=== PATIENT | male | born 1990 | race Caucasian/White ===

== ENCOUNTER 2017-01-25 21:20 | Emergency (ER) | payer MEDICAID ==
[~2017-01-25] VITALS: Ht 180.3 cm; Wt 80.8 kg
[~2017-01-25 21:20] MED LIST: ALPR-475 PO; AMPH30TA2 PO; METH-356 PO; ZOLP-413 PO
[2017-01-25 21:22] VITALS: BP 156/109
== END 2017-01-25 22:10 | disposition left against medical advice (07) ==
LOC: ED 22:04
DX: R05 Cough (principal); Z53.21 Procedure and treatment not carried out due to patient leaving prior to being seen by health care provider

== ENCOUNTER 2017-02-07 21:55 | Emergency (ER) | payer MEDICAID ==
[~2017-02-07] VITALS: Ht 180.3 cm; Wt 80.9 kg
[2017-02-07 22:00] VITALS: BP 140/96
[2017-02-07] MEDS ORDERED: IBUPROFEN 200 MG TABLET ONE (22:27)
[2017-02-07] MEDS ORDERED: TRAZ150T68 PO (22:32)
[2017-02-07] MEDS ORDERED: IBUPROFEN 200 MG TABLET PO ONE (23:30)
== END 2017-02-07 23:17 | disposition home or self-care (01) ==
LOC: ED 22:59
DX: S16.1XXA Strain of muscle, fascia and tendon at neck level, initial encounter (principal); F10.20 Alcohol dependence, uncomplicated; F17.200 Nicotine dependence, unspecified, uncomplicated; F11.10 Opioid abuse, uncomplicated; F15.10 Other stimulant abuse, uncomplicated; X58.XXXA Exposure to other specified factors, initial encounter; Y93.89 Activity, other specified; Y92.89 Other specified places as the place of occurrence of the external cause; Y99.8 Other external cause status
CPT/HCPCS: 72050

== ENCOUNTER 2017-04-25 02:06 | Emergency (ER) | payer MEDICAID ==
[~2017-04-25] VITALS: Ht 180.3 cm; Wt 82.4 kg
[2017-04-25 02:06] VITALS: BP 136/94
[~2017-04-25 02:06] MED LIST changes: +TRAZ150T68 PO
[2017-04-25] MEDS ORDERED: KETOROLAC 30 MG/1 ML ONE (02:54)
[2017-04-25] MEDS ORDERED: KETOROLAC 30 MG/1 ML IM ONE (03:00)
== END 2017-04-25 03:06 | disposition home or self-care (01) ==
LOC: ED 02:31
DX: K08.89 Other specified disorders of teeth and supporting structures (principal); E87.6 Hypokalemia; F10.20 Alcohol dependence, uncomplicated
CPT/HCPCS: 96372; 99283; J1885

== ENCOUNTER 2017-05-25 18:59 | Emergency (ER) | payer MEDICAID ==
[~2017-05-25] VITALS: Ht 180.3 cm; Wt 88.5 kg
[2017-05-25 19:03] VITALS: BP 138/88
== END 2017-05-25 20:23 | disposition home or self-care (01) ==
LOC: ED 20:17
DX: S39.012A Strain of muscle, fascia and tendon of lower back, initial encounter (principal); K02.9 Dental caries, unspecified; F17.210 Nicotine dependence, cigarettes, uncomplicated; F20.9 Schizophrenia, unspecified; X58.XXXA Exposure to other specified factors, initial encounter; Y93.89 Activity, other specified; Y99.8 Other external cause status; Y92.89 Other specified places as the place of occurrence of the external cause
CPT/HCPCS: 99283

== ENCOUNTER 2017-06-26 12:44 | Emergency (ER) | payer MEDICAID ==
[~2017-06-26] VITALS: Ht 180.3 cm; Wt 82.7 kg
[2017-06-26 12:58] VITALS: BP 137/88
== END 2017-06-26 13:51 | disposition home or self-care (01) ==
LOC: ED 13:30
DX: K02.9 Dental caries, unspecified (principal); F17.200 Nicotine dependence, unspecified, uncomplicated
CPT/HCPCS: 99283

== ENCOUNTER 2017-07-09 19:30 | Emergency (ER) | payer MEDICAID ==
[~2017-07-09] VITALS: Ht 180.3 cm; Wt 81.7 kg
[~2017-07-09 19:30] MED LIST changes: +TRAZ150T62 PO; -TRAZ150T68 PO
[2017-07-09 19:43] VITALS: BP 126/98
== END 2017-07-09 21:52 | disposition home or self-care (01) ==
LOC: ED 21:46
DX: S60.031A Contusion of right middle finger without damage to nail, initial encounter (principal); W19.XXXA Unspecified fall, initial encounter; Y93.89 Activity, other specified; Y92.89 Other specified places as the place of occurrence of the external cause; Y99.8 Other external cause status
CPT/HCPCS: 99284

== ENCOUNTER 2017-07-11 14:21 | Emergency (ER) | payer MEDICAID ==
[~2017-07-11] VITALS: Ht 180.3 cm; Wt 79.8 kg
[2017-07-11 14:44] VITALS: BP 165/97
[2017-07-11] MEDS ORDERED: HYDROcodone/APAP 5/325 TABLET PO ONE (15:30)
[2017-07-11] MEDS ORDERED: HYDROcodone/APAP 5/325 TABLET ONE (15:34)
== END 2017-07-11 15:45 | disposition home or self-care (01) ==
LOC: ED 15:41
DX: K02.9 Dental caries, unspecified (principal); F17.200 Nicotine dependence, unspecified, uncomplicated; F19.10 Other psychoactive substance abuse, uncomplicated
CPT/HCPCS: 99283

== ENCOUNTER 2017-07-24 12:15 | Emergency (ER) | payer MEDICAID ==
[~2017-07-24] VITALS: Ht 180.3 cm; Wt 75.9 kg
[2017-07-24 12:22] VITALS: BP 153/86
== END 2017-07-24 13:05 | disposition left against medical advice (07) ==
LOC: ED 12:59
DX: Z53.21 Procedure and treatment not carried out due to patient leaving prior to being seen by health care provider (principal)

== ENCOUNTER 2017-10-01 02:44 | Emergency (ER) | payer MEDICAID ==
[~2017-10-01] VITALS: Ht 180.3 cm; Wt 75.4 kg
[2017-10-01 02:45] VITALS: BP 134/89
[2017-10-01] MEDS ORDERED: OXYcodone/APAP 10/325MG TABLET PO ONE (05:00)
[2017-10-01] MEDS ORDERED: KETOROLAC 30 MG/1 ML IM ONE (05:00)
== END 2017-10-01 05:04 | disposition home or self-care (01) ==
LOC: ED 03:56
DX: K02.9 Dental caries, unspecified (principal); K04.7 Periapical abscess without sinus; F17.200 Nicotine dependence, unspecified, uncomplicated
CPT/HCPCS: 96372; 99283; J1885

== ENCOUNTER 2017-11-16 19:19 | Emergency (ER) | payer MEDICAID, OTHER ==
[~2017-11-16] VITALS: Ht 180.3 cm; Wt 71.0 kg
[2017-11-16] MEDS ORDERED: ALPR0.25 PO (19:34)
[2017-11-16] MEDS ORDERED: HYDR1TAB12 PO (19:34)
[2017-11-16] MEDS ORDERED: DEXT10TA7 PO (19:34)
[2017-11-16] MEDS ORDERED: ZOLP-413 PO (19:34)
[2017-11-16] MEDS ORDERED: AMOX250C17 PO (19:34)
[2017-11-16 19:44] LABS: BASOPHILS # (AUTO) 0.01 x10^3/uL (0-0.1); BASOPHILS % (AUTO) 0 % (0-1); EOSINOPHILS # (AUTO) 0.03 x10^3/uL (0-0.4); EOSINOPHILS % (AUTO) 0 % (1-7); LYMPHOCYTES % (AUTO) 14 % (22-44); MD NO; MEAN CORPUSCULAR HEMOGLOBIN 30.2 pg (27.5-34.5); MEAN CORPUSCULAR HGB CONC 34.8 g/dL (33.2-36.2); MEAN CORPUSCULAR VOLUME 86.7 fL (81-97); MEAN PLATELET VOLUME 7.5 fL (7.4-10.4); MONOCYTES % (AUTO) 6 % (2-9); NEUTROPHILS # (AUTO) 9.77 x10^3/uL (1.8-6.8); NEUTROPHILS % (AUTO) 80 % (42-75); PLATELET COUNT 214 x10^3/uL (130-400); RED BLOOD COUNT 5.07 x10^6/uL (4.38-5.82); RED CELL DISTRIBUTION WIDTH 12.4 % (9.4-14.8)
[2017-11-16 19:53] VITALS: BP 127/84
[2017-11-16 19:55] LABS: ALBUMIN 4.4 g/dL (3.4-5.0); ANION GAP 10 mmol/L (5-15); CALCIUM 9.1 mg/dL (8.5-10.1); CHLORIDE 104 mmol/L (98-107); CREATININE 0.83 mg/dL (0.7-1.3)
[2017-11-16 20:41] LABS: CREATINE KINASE, TOTAL 24031 U/L (39-308)
== END 2017-11-16 20:24 ==
LOC: ED 20:18
DX: M79.651 Pain in right thigh (principal); M79.652 Pain in left thigh; I10 Essential (primary) hypertension
CPT/HCPCS: 36415; 80048; 82040; 82550; 85025; 99284

== ENCOUNTER 2017-11-22 12:02 | Emergency (ER) | payer SELFPAY ==
[~2017-11-22] VITALS: Ht 182.9 cm; Wt 80.0 kg
[~2017-11-22 12:02] MED LIST changes: +ALPR0.25 PO; +AMOX250C17 PO; +DEXT10TA7 PO; +HYDR1TAB12 PO
[2017-11-22 12:14] VITALS: BP 125/85
[2017-11-22] MEDS ORDERED: IBUPROFEN 200 MG TABLET PO ONE (12:30)
[2017-11-22] MEDS ORDERED: IBUPROFEN 200 MG TABLET ONE (12:31)
== END 2017-11-22 12:43 | disposition left against medical advice (07) ==
LOC: ED 12:15
DX: M25.571 Pain in right ankle and joints of right foot (principal); G89.11 Acute pain due to trauma; K08.9 Disorder of teeth and supporting structures, unspecified; F19.10 Other psychoactive substance abuse, uncomplicated
CPT/HCPCS: 99284

== ENCOUNTER 2017-11-28 16:33 | Emergency (ER) | payer MEDICAID, OTHER ==
[~2017-11-28] VITALS: Ht 180.3 cm; Wt 77.8 kg
[2017-11-28] MEDS ORDERED: HYDROcodone/APAP 5/325 TABLET PO STA (17:05)
[2017-11-28] MEDS ORDERED: HYDROcodone/APAP 5/325 TABLET ONE (17:05)
[2017-11-28 17:35] VITALS: BP 152/96
== END 2017-11-28 17:38 | disposition home or self-care (01) ==
LOC: ED 17:32
DX: K02.9 Dental caries, unspecified (principal); I10 Essential (primary) hypertension; F20.9 Schizophrenia, unspecified
CPT/HCPCS: 99283

== ENCOUNTER 2018-01-14 14:30 | Emergency (ER) | payer MEDICAID ==
[~2018-01-14] VITALS: Ht 185.4 cm; Wt 68.6 kg
[2018-01-14 14:33] VITALS: BP 128/86
== END 2018-01-14 15:48 | disposition left against medical advice (07) ==
LOC: ED 15:42
DX: K13.79 Other lesions of oral mucosa (principal); Z53.21 Procedure and treatment not carried out due to patient leaving prior to being seen by health care provider

== ENCOUNTER 2018-02-06 09:49 | Emergency (ER) | payer MEDICAID ==
[~2018-02-06] VITALS: Ht 177.8 cm; Wt 66.2 kg
[2018-02-06 09:50] VITALS: BP 138/78
== END 2018-02-06 10:52 | disposition left against medical advice (07) ==
LOC: ED 10:15
DX: K08.89 Other specified disorders of teeth and supporting structures (principal); I10 Essential (primary) hypertension
CPT/HCPCS: 99281

== ENCOUNTER 2018-02-10 23:22 | Emergency (ER) | payer MEDICAID ==
[~2018-02-10] VITALS: Ht 172.7 cm; Wt 65.3 kg
[2018-02-10 23:26] VITALS: BP 109/76
== END 2018-02-10 23:54 | disposition home or self-care (01) ==
LOC: ED 23:50
DX: M79.672 Pain in left foot (principal); M79.671 Pain in right foot; F17.200 Nicotine dependence, unspecified, uncomplicated
CPT/HCPCS: 99283

== ENCOUNTER 2018-08-02 07:47 | Emergency (ER) | payer MEDICAID ==
[~2018-08-02] VITALS: Ht 181.6 cm; Wt 78.7 kg
[2018-08-02] MEDS ORDERED: ONDANSETRON ODT 4 MG PO ONE (09:30)
[2018-08-02] MEDS ORDERED: ONDANSETRON ODT 4 MG ONE (09:56)
[2018-08-02] MEDS ORDERED: SODIUM CHLORIDE FLUSH 10ML SYR IVF ONE (10:00)
[2018-08-02] MEDS ORDERED: SODIUM CHLORIDE 0.9% 1,000ML IVBOLUS ONE (10:00)
[2018-08-02 10:11] LABS: MICROSCOPIC NOT IND
[2018-08-02] MEDS ORDERED: KETOROLAC 30 MG/1 ML ONE (10:16)
[2018-08-02 10:20] LABS: CULTURE INDICATED? NO
[2018-08-02] MEDS ORDERED: KETOROLAC 30 MG/1 ML IVPush ONE (10:30)
[2018-08-02 10:41] LABS: ALBUMIN 4.1 g/dL (3.4-5.0); ANION GAP 8 mmol/L (5-15); CALCIUM 8.3 mg/dL (8.5-10.1); CHLORIDE 109 mmol/L (98-107); CREATININE 0.79 mg/dL (0.7-1.3)
[2018-08-02 10:43] LABS: ALKALINE PHOSPHATASE 77 U/L (45-117); BILIRUBIN,TOTAL 0.3 mg/dL (0.2-1.0); TOTAL PROTEIN 7.2 g/dL (6.4-8.2)
[2018-08-02 10:46] LABS: ALANINE AMINOTRANSFERASE 29 U/L (12-78)
[2018-08-02 10:54] LABS: BASOPHILS # (AUTO) 0.03 x10^3/uL (0-0.1); BASOPHILS % (AUTO) 0 % (0-1); EOSINOPHILS # (AUTO) 0.04 x10^3/uL (0-0.4); EOSINOPHILS % (AUTO) 1 % (1-7); LYMPHOCYTES # (AUTO) 1.19 x10^3/uL (1-3.4); LYMPHOCYTES % (AUTO) 16 % (22-44); MD SCAN; MEAN CORPUSCULAR HEMOGLOBIN 31.5 pg (27.5-34.5); MEAN CORPUSCULAR HGB CONC 35.4 g/dL (33.2-36.2); MEAN PLATELET VOLUME 8.4 fL (7.4-10.4); MONOCYTES # (AUTO) 0.45 x10^3/uL (0.2-0.8); MONOCYTES % (AUTO) 6 % (2-9); NEUTROPHILS # (AUTO) 5.71 x10^3/uL (1.8-6.8); NEUTROPHILS % (AUTO) 77 % (42-75); PLATELET COUNT 188 x10^3/uL (130-400); RED BLOOD COUNT 4.84 x10^6/uL (4.38-5.82)
[2018-08-02 11:08] VITALS: BP 136/99
== END 2018-08-02 11:23 | disposition home or self-care (01) ==
LOC: ED 11:10
DX: R10.84 Generalized abdominal pain (principal); R11.2 Nausea with vomiting, unspecified; R19.7 Diarrhea, unspecified; I10 Essential (primary) hypertension; F17.200 Nicotine dependence, unspecified, uncomplicated; F20.9 Schizophrenia, unspecified
CPT/HCPCS: 36415; 74021; 80053; 81003; 85025; 96361; 96374; 99285; J1885; J7030; Q0162

== ENCOUNTER 2018-08-11 11:55 | Emergency (ER) | payer MEDICAID ==
[~2018-08-11] VITALS: Ht 180.3 cm; Wt 78.9 kg
[2018-08-11 11:58] VITALS: BP 119/86
[2018-08-11] MEDS ORDERED: ACETAMINOPHEN 325 MG TABLET ONE (12:26)
[2018-08-11] MEDS ORDERED: IBUPROFEN 200 MG TABLET ONE (12:26)
[2018-08-11] MEDS ORDERED: ACETAMINOPHEN 325 MG TABLET PO ONE (12:30)
[2018-08-11] MEDS ORDERED: IBUPROFEN 200 MG TABLET PO ONE (12:30)
== END 2018-08-11 12:51 | disposition home or self-care (01) ==
LOC: ED 12:21
DX: K08.89 Other specified disorders of teeth and supporting structures (principal); I10 Essential (primary) hypertension; F20.9 Schizophrenia, unspecified; F17.200 Nicotine dependence, unspecified, uncomplicated
CPT/HCPCS: 99283

== ENCOUNTER 2019-03-24 13:44 | Emergency (ER) | payer MEDICAID ==
[~2019-03-24] VITALS: Ht 185.4 cm; Wt 87.0 kg
[~2019-03-24 13:44] MED LIST changes: -HYDR1TAB12 PO; +HYDR1TAB13 PO; -METH-356 PO; +METH10TA2 PO
[2019-03-24] MEDS ORDERED: PLEASE ENTER HEIGHT AND WEIGHT MC SCH (13:56)
[2019-03-24] MEDS ORDERED: LORazepam 1MG TABLET PO ONE (14:00)
[2019-03-24 14:01] VITALS: BP 135/84
[2019-03-24] MEDS ORDERED: LORazepam 1MG TABLET ONE (14:07)
--- NOTE | 2019-03-24 14:20 | NUR ---
PROGRESS NOTE - PT BIB EMS. PER EMS, PT STATED HE DID NOT FEEL WEEL. TOOK MULTIPLE DRUGS AND MEDS (SEE TRIAGE NOTE). PT STATES HE HAS DENTAL PAIN. PT APPEARS VERY ANXIOUS. PT STATES HE WANTS TO LEAVE. EDUCATION PROVIDED THAST HE SHOULD REMAIN IN ED FOR MONITORING. PT IS A&OX4, NEURO APPEARS INTACT EXCEPT ANXIOS. NO OBVIOUS SIGNS OF TRAUMA. PT DENIES ANY RECENT INJURY. PT MEDICATED PER ORDER. PT ON CP MONITORS. REFUSING LAB WORK AND EKG. PT THEN ELOPED FROM ED WITH ALL PERSONAL BELONGINGS.
--- NOTE | 2019-03-24 14:37 | NUR ---
PT LEFT AMBULATORY WITH STEADY GAIT AND ALL PERSONAL BELONGINGS.
== END 2019-03-24 14:39 | disposition left against medical advice (07) ==
LOC: ED 14:33
DX: F11.229 Opioid dependence with intoxication, unspecified (principal); F15.229 Other stimulant dependence with intoxication, unspecified; F22 Delusional disorders; I10 Essential (primary) hypertension; F20.9 Schizophrenia, unspecified
CPT/HCPCS: 99283

== ENCOUNTER 2019-03-31 09:48 | Emergency (ER) | payer MEDICAID ==
[~2019-03-31] VITALS: Ht 180.3 cm; Wt 84.6 kg
[2019-03-31 09:54] VITALS: BP 152/99
--- NOTE | 2019-03-31 11:53 | NUR ---
INSURANCE LOSS ASSESSOR: PT NOT IN LOBBY X 3 ATTEMPTS, 1105, 1120, 1140
== END 2019-03-31 11:55 | disposition left against medical advice (07) ==
LOC: ED 11:49
DX: K08.89 Other specified disorders of teeth and supporting structures (principal)
CPT/HCPCS: 99281

== ENCOUNTER 2019-04-26 15:36 | Emergency (ER) | payer MEDICAID ==
[~2019-04-26] VITALS: Ht 175.3 cm; Wt 75.0 kg
--- NOTE | 2019-04-26 16:02 | NUR ---
Per [facility], patient was on top of parking garage threatening to jump off. Reports smoking meth 30 min prior to [facility]'s arrival. When RN asked patient to remove his clothes he asked if he could take one more hit of meth before his clothes were locked up. RN said no, then patient began smoking meth in room in front of RN. Security called. Clothes removed and one belongings bag locked up in closet. When taking VS, RN found bag of meth in patient's hand. Meth confiscated from patient and disposed of in RX pharmaceutical destroyer (white bottle) in med room. Dispoal verified with Jenny Shannon RN. Room secured. Will continue to monitor.
[2019-04-26 16:19] LABS: BASOPHILS # (AUTO) 0.02 x10^3/uL (0-0.1); BASOPHILS % (AUTO) 0 % (0-1); EOSINOPHILS # (AUTO) 0.03 x10^3/uL (0-0.4); EOSINOPHILS % (AUTO) 1 % (1-7); LYMPHOCYTES % (AUTO) 20 % (22-44); MD NO; MEAN CORPUSCULAR HEMOGLOBIN 32.1 pg (27.5-34.5); MEAN CORPUSCULAR HGB CONC 33.9 g/dL (33.2-36.2); MEAN CORPUSCULAR VOLUME 94.8 fL (81-97); MONOCYTES # (AUTO) 0.22 x10^3/uL (0.2-0.8); MONOCYTES % (AUTO) 4 % (2-9); NEUTROPHILS # (AUTO) 3.74 x10^3/uL (1.8-6.8); NEUTROPHILS % (AUTO) 75 % (42-75); PLATELET COUNT 188 x10^3/uL (130-400); RED BLOOD COUNT 4.58 x10^6/uL (4.38-5.82); RED CELL DISTRIBUTION WIDTH 15.1 % (9.4-14.8)
[2019-04-26 16:31] LABS: ALBUMIN 4.2 g/dL (3.4-5.0); ANION GAP 5 mmol/L (5-15); CALCIUM 9.1 mg/dL (8.5-10.1); CHLORIDE 111 mmol/L (98-107); CREATININE 0.96 mg/dL (0.7-1.3); SALICYLATE LEVEL 1.9 mg/dL (2.8-20.0)
--- NOTE | 2019-04-26 16:45 | NUR ---
Sitter at bedside.
--- NOTE | 2019-04-26 16:58 | NUR ---
Encouraged patient to provide UA.
[2019-04-26 17:44] LABS: AMPHETAMINE SCREEN, URINE Positive (Negative); BARBITURATE SCREEN, URINE Negative (Negative); BENZODIAZEPINE SCREEN, URINE Negative (Negative); CANNABINOID SCREEN, URINE Negative (Negative); COCAINE SCREEN, URINE Negative (Negative); METHADONE SCREEN, URINE Negative (Negative); OPIATE SCREEN, URINE Negative (Negative)
--- NOTE | 2019-04-26 17:55 | NUR ---
Patient repeatedly trying to get out of room. Patient calm and cooperative. Patient excorted back into [facility].
[2019-04-26 18:15] VITALS: BP 138/94
--- NOTE | 2019-04-26 18:37 | NUR ---
Patient/Caregiver given discharge instructions and they have confirmed that they understand the instructions. Patient ambulatory with steady gait.
== END 2019-04-26 18:38 | disposition home or self-care (01) ==
LOC: ED 16:30
DX: F15.129 Other stimulant abuse with intoxication, unspecified (principal); Z72.9 Problem related to lifestyle, unspecified
CPT/HCPCS: 36415; 80048; 80307; 82040; 85025; 99283

== ENCOUNTER 2019-04-30 16:09 | Inpatient (IN) | payer MEDICAID ==
[~2019-04-30] VITALS: Ht 180.3 cm; Wt 80.9 kg
[2019-04-30] MEDS ORDERED: ACETAMINOPHEN 325 MG TABLET PO PRN (16:30)
[2019-04-30] MEDS ORDERED: BISACODYL 10 MG SUPP PR PRN (16:30)
[2019-04-30] MEDS ORDERED: ONDANSETRON ODT 4 MG PO PRN (16:30)
[2019-04-30] MEDS ORDERED: DOCUSATE 100 MG CAPSULE PO PRN (16:30)
[2019-04-30] MEDS ORDERED: POLYETHYLENE GLYCOL 17 GM PACKET PO PRN (16:30)
[2019-04-30 16:42] VITALS: BP 122/81
[2019-04-30] MEDS ORDERED: NICOTINE 14MG/24 HR PATCH.TD24 TD ONE (17:00)
[2019-04-30] MEDS ORDERED: PLEASE ENTER HEIGHT AND WEIGHT MC SCH (17:00)
[2019-04-30 17:16] VITALS: BP 122/81
[2019-04-30 17:34] LABS: HCT (SEDRATE) 42.3 % (39.2-51.8)
[2019-04-30 17:55] LABS: CHOL/HDL RATIO 4.4; LDL/HDL RATIO 2.5 (0.5-3.0); T4 (THYROXINE) 6.6 mcg/dL (4.5-12.1); THYROID STIMULATING HORMONE 0.99 mIU/L (0.358-3.740)
[2019-04-30 19:33] VITALS: BP 109/67
[2019-04-30] MEDS: HALOPERIDOL 5 MG TABLET PO SCH (21:38)
[2019-05-01 07:28] VITALS: BP 103/59
[2019-05-01] MEDS: NICOTINE 14MG/24 HR PATCH.TD24 TD SCH (09:04)
[2019-05-01 18:10] LABS: BASOPHILS # (AUTO) 0.02 x10^3/uL (0-0.1); BASOPHILS % (AUTO) 0 % (0-1); EOSINOPHILS # (AUTO) 0.08 x10^3/uL (0-0.4); EOSINOPHILS % (AUTO) 1 % (1-7); LYMPHOCYTES # (AUTO) 1.94 x10^3/uL (1-3.4); LYMPHOCYTES % (AUTO) 35 % (22-44); MD NO; MEAN CORPUSCULAR HEMOGLOBIN 32.4 pg (27.5-34.5); MEAN CORPUSCULAR HGB CONC 34.2 g/dL (33.2-36.2); MEAN CORPUSCULAR VOLUME 94.7 fL (81-97); MEAN PLATELET VOLUME 8.5 fL (7.4-10.4); MONOCYTES # (AUTO) 0.51 x10^3/uL (0.2-0.8); MONOCYTES % (AUTO) 9 % (2-9); NEUTROPHILS # (AUTO) 3.04 x10^3/uL (1.8-6.8); NEUTROPHILS % (AUTO) 54 % (42-75); PLATELET COUNT 219 x10^3/uL (130-400); RED BLOOD COUNT 4.92 x10^6/uL (4.38-5.82); RED CELL DISTRIBUTION WIDTH 14.3 % (9.4-14.8)
[2019-05-01 18:17] LABS: ANION GAP 4 mmol/L (5-15); CALCIUM 8.8 mg/dL (8.5-10.1); CHLORIDE 108 mmol/L (98-107); CREATININE 0.76 mg/dL (0.7-1.3)
[2019-05-01 18:56] LABS: MICROSCOPIC NOT IND
[2019-05-01 19:07] LABS: CULTURE INDICATED? NO
[2019-05-01 19:26] VITALS: BP 116/78
[2019-05-01] MEDS: HALOPERIDOL 5 MG TABLET PO SCH (20:14)
[2019-05-02 07:28] VITALS: BP 114/77
[2019-05-02] MEDS: NICOTINE 14MG/24 HR PATCH.TD24 TD SCH (08:45)
[2019-05-02] MEDS ORDERED: HYDROXYZINE PAMOATE 50MG CAP PO PRN (15:30)
[2019-05-02 19:29] VITALS: BP 116/75
[2019-05-02] MEDS: HALOPERIDOL 5 MG TABLET PO SCH (20:39)
[2019-05-03 07:25] VITALS: BP 119/70
[2019-05-03] MEDS: NICOTINE 14MG/24 HR PATCH.TD24 TD SCH (08:24)
[2019-05-03 20:02] VITALS: BP 132/94
[2019-05-03] MEDS: HALOPERIDOL 5 MG TABLET PO SCH (20:21)
[2019-05-04 07:23] VITALS: BP 114/77
[2019-05-04] MEDS: NICOTINE 14MG/24 HR PATCH.TD24 TD SCH (08:50)
[2019-05-04] MEDS: LORazepam 0.5MG TABLET PO PRN ×2 (16:02→20:55)
[2019-05-04 19:38] VITALS: BP 125/86
[2019-05-04] MEDS: HALOPERIDOL 5 MG TABLET PO SCH (20:07)
[2019-05-05 07:31] VITALS: BP 118/77
[2019-05-05] MEDS: LORazepam 0.5MG TABLET PO PRN ×2 (08:22→15:46)
[2019-05-05] MEDS: NICOTINE 14MG/24 HR PATCH.TD24 TD SCH (08:23)
[2019-05-05] MEDS ORDERED: HALO5TAB5 PO (18:51)
[2019-05-05] MEDS ORDERED: NICO-486 TD (18:51)
[2019-05-05] MEDS ORDERED: HYDR25TA11 PO (18:51)
[2019-05-05 19:31] VITALS: BP 123/86
[2019-05-05] MEDS ORDERED: ZOLPIDEM 5MG TABLET ONE (20:11)
[2019-05-05] MEDS: HALOPERIDOL 5 MG TABLET PO SCH (20:12)
[2019-05-05] MEDS ORDERED: ZOLPIDEM 10MG TABLET PO ONE (21:00)
[2019-05-06] MEDS: LORazepam 0.5MG TABLET PO PRN (05:40)
[2019-05-06 07:54] VITALS: BP 129/91
[2019-05-06] MEDS: NICOTINE 14MG/24 HR PATCH.TD24 TD SCH (08:12)
== END 2019-05-06 10:46 | DRG 885 ==
LOC: 3E 16:34
PROVIDERS: ADMIT Psychiatry & Neurology Psychiatry; ATTEND Psychiatry & Neurology Psychiatry
DX: F25.0 Schizoaffective disorder, bipolar type (principal); F15.10 Other stimulant abuse, uncomplicated; F17.200 Nicotine dependence, unspecified, uncomplicated; F41.1 Generalized anxiety disorder; F42.9 Obsessive-compulsive disorder, unspecified; F60.9 Personality disorder, unspecified; F90.9 Attention-deficit hyperactivity disorder, unspecified type; G47.00 Insomnia, unspecified; Z79.899 Other long term (current) drug therapy
CPT/HCPCS: 36415; 71045; 80048; 80061; 81003; 82140; 82607; 84436; 84443; 85025; 85651; 86592; 93005; Q0177

== ENCOUNTER 2019-06-10 11:00 | Emergency (ER) | payer MEDICAID ==
[~2019-06-10] VITALS: Ht 180.3 cm; Wt 77.0 kg
[~2019-06-10 11:00] MED LIST changes: -ALPR-475 PO; +ALPR0.5T7 PO; +HALO5TAB5 PO; +HYDR-826 PO; +NICO-486 TD
[2019-06-10 11:06] VITALS: BP 110/69
--- NOTE | 2019-06-10 11:35 | NUR ---
PT DROWSY, EYES CLOSED. PT STATES HE WALKED HERE TO GET NORCO FOR DENTAL PAIN. PT STATES HE DRANK A FIFTH OF VODKA TODAY. WHEN ASKED PT UOB AND WALKED A SHORT DISTANCE WITHOUT ASSISTANCE, STEADY GAIT. MD DORADO WITH INTENTION TO DISCHARGE WITH ANTIBIOTICS. PT REQUESTING TAXI VOUCHER
[2019-06-30] MEDS ORDERED: LORA-445 PO (04:18)
[2019-06-30] MEDS ORDERED: ALPR0.25 PO (04:18)
[2019-06-30] MEDS ORDERED: HALO5TAB5 PO (16:01)
[2019-06-30] MEDS ORDERED: AMPH20TA2 PO (16:02)
[2019-06-30] MEDS ORDERED: HYDR25CA PO (16:04)
[2019-07-04] MEDS ORDERED: OLAN10TA9 PO (13:31)
[2019-07-04] MEDS ORDERED: NICO-487 TD (13:31)
== END 2019-06-10 11:54 | disposition home or self-care (01) ==
LOC: ED 11:48
DX: K08.89 Other specified disorders of teeth and supporting structures (principal); F15.10 Other stimulant abuse, uncomplicated
CPT/HCPCS: 99283

== ENCOUNTER 2019-06-11 16:02 | Emergency (ER) | payer MEDICAID ==
[~2019-06-11] VITALS: Ht 180.3 cm; Wt 78.0 kg
[2019-06-11 16:04] VITALS: BP 139/93
[2019-06-11] MEDS ORDERED: ONDANSETRON ODT 4 MG ONE (16:33)
[2019-06-11] MEDS ORDERED: KETOROLAC 30 MG/1 ML ONE (16:34)
[2019-06-11] MEDS ORDERED: MAALOX/HYOSCYAMINE/LIDOCAINE 45 ML BTL ONE (16:34)
[2019-06-11 16:43] LABS: BASOPHILS # (AUTO) 0.01 x10^3/uL (0-0.1); BASOPHILS % (AUTO) 0 % (0-1); EOSINOPHILS # (AUTO) 0.02 x10^3/uL (0-0.4); EOSINOPHILS % (AUTO) 0 % (1-7); LYMPHOCYTES # (AUTO) 0.89 x10^3/uL (1-3.4); LYMPHOCYTES % (AUTO) 15 % (22-44); MD NO; MEAN CORPUSCULAR HEMOGLOBIN 31.9 pg (27.5-34.5); MEAN CORPUSCULAR HGB CONC 34.1 g/dL (33.2-36.2); MEAN CORPUSCULAR VOLUME 93.6 fL (81-97); MONOCYTES # (AUTO) 0.16 x10^3/uL (0.2-0.8); MONOCYTES % (AUTO) 3 % (2-9); NEUTROPHILS # (AUTO) 4.92 x10^3/uL (1.8-6.8); NEUTROPHILS % (AUTO) 82 % (42-75); PLATELET COUNT 223 x10^3/uL (130-400); RED BLOOD COUNT 5.14 x10^6/uL (4.38-5.82); RED CELL DISTRIBUTION WIDTH 13.4 % (9.4-14.8)
--- NOTE | 2019-06-11 16:43 | NUR ---
PT AMBULATORY TO ROOM 41 W/ C/O STOMACH PAIN AND TOOTH PAIN X 4 DAYS. PT STATES HE HAS HAD DIARRHEA X 4 DAYS. DENIES N/V. PT W/ FLAT AFFECT. DOES NOT COMMUNICATE UNLESS ASKED QUESTIONS. ONLY ANSWERS YES OR NO. PT RESTING ON BERTA. LISSET.
--- NOTE | 2019-06-11 16:47 | NUR ---
PT STATES "NO" WHEN ASKED IF HE CAN PROVIDE STOOL SAMPLE.
[2019-06-11 16:53] LABS: ALANINE AMINOTRANSFERASE 22 U/L (12-78); ALBUMIN 3.9 g/dL (3.4-5.0); ANION GAP 10 mmol/L (5-15); CALCIUM 9.1 mg/dL (8.5-10.1); CHLORIDE 109 mmol/L (98-107)
[2019-06-11 16:55] LABS: ALKALINE PHOSPHATASE 61 U/L (45-117); BILIRUBIN,TOTAL 0.5 mg/dL (0.2-1.0); TOTAL PROTEIN 7.1 g/dL (6.4-8.2)
[2019-06-11] MEDS ORDERED: KETOROLAC 60 MG/2 ML IM ONE (17:00)
[2019-06-11] MEDS ORDERED: ONDANSETRON ODT 4 MG PO ONE (17:00)
[2019-06-11] MEDS ORDERED: MAALOX/HYOSCYAMINE/LIDOCAINE 45 ML BTL PO ONE (17:00)
--- NOTE | 2019-06-11 17:05 | NUR ---
WENT IN TO ASSESS PT. PT NO LONGER IN ROOM OR RESTROOM. ALL PERSONAL BELONGINGS GONE. LOOKED FOR PT IN DEPARTMENT. NOT ABLE TO FIND PT.
[2019-06-30] MEDS ORDERED: ALPR0.25 PO (04:18)
[2019-06-30] MEDS ORDERED: LORA-445 PO (04:18)
[2019-06-30] MEDS ORDERED: HALO5TAB5 PO (16:01)
[2019-06-30] MEDS ORDERED: AMPH20TA2 PO (16:02)
[2019-06-30] MEDS ORDERED: HYDR25CA PO (16:04)
[2019-07-04] MEDS ORDERED: NICO-487 TD (13:31)
[2019-07-04] MEDS ORDERED: OLAN10TA9 PO (13:31)
== END 2019-06-11 17:07 | disposition left against medical advice (07) ==
LOC: ED 16:10
DX: R10.84 Generalized abdominal pain (principal); R19.7 Diarrhea, unspecified; R11.0 Nausea; F17.200 Nicotine dependence, unspecified, uncomplicated
CPT/HCPCS: 36415; 80053; 83690; 85025; 96372; 99283; J1885; Q0162

== ENCOUNTER 2019-10-08 17:27 | Emergency (ER) | payer MEDICAID ==
[~2019-10-08] VITALS: Ht 177.8 cm; Wt 75.0 kg
[~2019-10-08 17:27] MED LIST changes: +AMPH20TA2 PO; +HYDR25CA PO; +LORA-445 PO; +NICO-487 TD; +OLAN10TA9 PO
[2019-10-08 17:58] VITALS: BP 126/84
[2019-10-08] MEDS ORDERED: ZIPRASIDONE 20 MG INJ IM ONE ×2 (18:00→18:06)
[2019-10-08] MEDS ORDERED: LORazepam 2 MG/ML, 1ML IM ONE (18:00)
--- NOTE | 2019-10-08 18:01 | NUR ---
PT BELONGINGS PLACED IN LOCKER (2 BAGS) AND ROOM SECURED. PATIENT TO BATHROOM FOR UA.
[2019-10-08] MEDS ORDERED: LORazepam 2 MG/ML, 1ML ONE (18:06)
[2019-10-08 18:08] LABS: MICROSCOPIC AUTO
[2019-10-08 18:15] LABS: CULTURE INDICATED? YES
[2019-10-08 18:18] LABS: BASOPHILS # (AUTO) 0.04 x10^3/uL (0-0.1); BASOPHILS % (AUTO) 0 % (0-1); EOSINOPHILS # (AUTO) 0.11 x10^3/uL (0-0.4); EOSINOPHILS % (AUTO) 1 % (1-7); LYMPHOCYTES # (AUTO) 1.01 x10^3/uL (1-3.4); LYMPHOCYTES % (AUTO) 9 % (22-44); MD NO; MEAN CORPUSCULAR HEMOGLOBIN 31.1 pg (27.5-34.5); MEAN CORPUSCULAR HGB CONC 34.1 g/dL (33.2-36.2); MEAN CORPUSCULAR VOLUME 91.2 fL (81-97); MEAN PLATELET VOLUME 8.2 fL (7.4-10.4); MONOCYTES # (AUTO) 0.45 x10^3/uL (0.2-0.8); MONOCYTES % (AUTO) 4 % (2-9); NEUTROPHILS # (AUTO) 10.28 x10^3/uL (1.8-6.8); NEUTROPHILS % (AUTO) 87 % (42-75); PLATELET COUNT 190 x10^3/uL (130-400); RED CELL DISTRIBUTION WIDTH 13.6 % (9.4-14.8)
--- NOTE | 2019-10-08 18:19 | NUR ---
Note igorone in EDM - 10/08/19 at 1853 by LAUREN TO ROOM TO MEDICATE. PT FOUND IN RESTROOM MASTURBATING. PT STATED "THAT IS THE QUICKEST I HAVE EVER CAME. UNDER A MINUTE." PT REDIRECTED AND PLACED BACK IN GOWN. PT REQUESTING TO KISS THIS RN'S FEET. PT REDIRECTED TO ROOM AT THIS TIME. PT MEDICATED PER ORDER.
[2019-10-08 18:20] LABS: AMPHETAMINE SCREEN, URINE Negative (Negative); BARBITURATE SCREEN, URINE Negative (Negative); BENZODIAZEPINE SCREEN, URINE Negative (Negative); CANNABINOID SCREEN, URINE Positive (Negative); COCAINE SCREEN, URINE Negative (Negative); METHADONE SCREEN, URINE Negative (Negative); OPIATE SCREEN, URINE Negative (Negative)
[2019-10-08 18:28] LABS: ALBUMIN 3.8 g/dL (3.4-5.0); ANION GAP 5 mmol/L (5-15); CHLORIDE 111 mmol/L (98-107)
[2019-10-08 18:30] LABS: SALICYLATE LEVEL < 1.7 mg/dL (2.8-20.0)
[2019-10-08] MEDS ORDERED: PLEASE ENTER HEIGHT AND WEIGHT MC SCH (18:30)
[2019-10-08 18:31] LABS: ALANINE AMINOTRANSFERASE 115 U/L (12-78); ALKALINE PHOSPHATASE 53 U/L (45-117); BILIRUBIN,TOTAL 0.5 mg/dL (0.2-1.0); CREATININE 0.68 mg/dL (0.7-1.3)
--- NOTE | 2019-10-08 18:52 | NUR ---
TO ROOM TO MEDICATE. PT FOUND IN RESTROOM MASTURBATING. PT STATED "THAT IS THE QUICKEST I HAVE EVER CAME. UNDER A MINUTE." PT REDIRECTED AND PLACED BACK IN GOWN. PT REQUESTING TO KISS THIS RN'S FEET. PT REDIRECTED TO ROOM AT THIS TIME. PT MEDICATED PER ORDER.
--- NOTE | 2019-10-08 18:53 | NUR ---
pt redirected multiple times to room. meal tray provided, pt found naked in room doing push ups. pt redirected back to bed with gown on. pt encouraged to stay in bed.
--- NOTE | 2019-10-08 19:04 | NUR ---
upon returning belongings to pt the paperwork is brought to room. pt is found smoking marijuana in room. pts mother is in hallway to take him home.
== END 2019-10-08 19:09 | disposition home or self-care (01) ==
LOC: ED 19:00
DX: F33.9 Major depressive disorder, recurrent, unspecified (principal); R45.851 Suicidal ideations; F10.129 Alcohol abuse with intoxication, unspecified; F12.129 Cannabis abuse with intoxication, unspecified; F17.200 Nicotine dependence, unspecified, uncomplicated; I10 Essential (primary) hypertension; F20.9 Schizophrenia, unspecified; Y90.0 Blood alcohol level of less than 20 mg/100 ml
CPT/HCPCS: 36415; 80053; 80307; 81001; 85025; 87086; 96372; 99284; J2060; J3486

== ENCOUNTER 2019-10-09 13:45 | Emergency (ER) | payer MEDICAID ==
[~2019-10-09] VITALS: Ht 177.8 cm; Wt 83.5 kg
[2019-10-09 13:47] VITALS: BP 160/105
--- NOTE | 2019-10-09 13:55 | NUR ---
PT REMOVING PANTS, EDUCATED ON APPROPRIATE BEHAVIOR. PT GESTURED TO NURSE AND STS "WITH ALL THESE BEAUTIFUL WOMEN HERE AND NO AT HOME I CAN SMACK IT HERE." PT INFORMED THAT THIS IS INAPPROPRIATE. PT THEN BECAME ANGRY WALKING IN HALLS AND ELOPED.
--- NOTE | 2019-10-09 13:57 | NUR ---
diamond cleaner: pt decided to decline further evaluation after he was told he could not drink his tall can Natural Ice beer while being seen in the ED. Pt departing ED w/ steady gait in NAD.
== END 2019-10-09 13:59 | disposition left against medical advice (07) ==
LOC: ED 13:53
DX: M79.602 Pain in left arm (principal); Z53.21 Procedure and treatment not carried out due to patient leaving prior to being seen by health care provider

== ENCOUNTER 2019-10-10 14:31 | Emergency (ER) | payer MEDICAID ==
[~2019-10-10] VITALS: Ht 170.2 cm; Wt 70.0 kg
[2019-10-10 14:50] VITALS: BP 124/78
[2019-10-10] MEDS ORDERED: IBUPROFEN 600 MG TABLET ONE (14:56)
[2019-10-10] MEDS ORDERED: IBUPROFEN 200 MG TABLET PO ONE (15:00)
--- NOTE | 2019-10-10 15:28 | NUR ---
pt in room and vital signs taken. pt instructed that innappropriate behavior will not be tolerated by staff. pt stated he is allowed to masturbate in the restroom because it is private. pt informed that this behavior is innappropriate. pt stated "but the nurses are so hot." pt redirected back to room multiple times by multiple staff. pt given the option to sit in room or if behavior persists security will escort him off property. pt at this time chose to leave er.
== END 2019-10-10 15:12 | disposition home or self-care (01) ==
LOC: ED 15:00
DX: K08.89 Other specified disorders of teeth and supporting structures (principal); F19.90 Other psychoactive substance use, unspecified, uncomplicated; Z72.89 Other problems related to lifestyle
CPT/HCPCS: 99283

== ENCOUNTER 2019-10-19 23:57 | Emergency (ER) | payer MEDICAID | END 2019-10-20 00:10 | disposition left against medical advice (07) | LOC: ED 10-20 00:04 | DX: R50.9 Fever, unspecified (principal); Z53.21 Procedure and treatment not carried out due to patient leaving prior to being seen by health care provider ==

== ENCOUNTER 2020-02-01 11:41 | Emergency (ER) | payer MEDICAID ==
[~2020-02-01] VITALS: Ht 180.3 cm; Wt 77.0 kg
[2020-02-01 11:44] VITALS: BP 164/101
== END 2020-02-01 12:17 | disposition left against medical advice (07) ==
LOC: ED 12:13
DX: K08.89 Other specified disorders of teeth and supporting structures (principal); Z53.21 Procedure and treatment not carried out due to patient leaving prior to being seen by health care provider

== ENCOUNTER 2020-03-30 09:48 | Inpatient (IN) | payer MEDICAID ==
[~2020-03-30] VITALS: Ht 180.3 cm; Wt 79.1 kg
[2020-03-30] MEDS ORDERED: DOCUSATE 100 MG CAPSULE PO PRN (11:00)
[2020-03-30] MEDS ORDERED: BISACODYL 10 MG SUPP PR PRN (11:00)
[2020-03-30] MEDS ORDERED: POLYETHYLENE GLYCOL 17 GM PACKET PO PRN (11:00)
[2020-03-30] MEDS ORDERED: ONDANSETRON ODT 4 MG PO PRN (11:00)
[2020-03-30 12:42] VITALS: BP 112/56
[2020-03-30] MEDS: METHYLPHENIDATE 10 MG TABLET PO SCH (14:47)
[2020-03-30] MEDS ORDERED: ZOLP5TAB PO (15:39)
[2020-03-30 19:43] VITALS: BP 122/82
[2020-03-30] MEDS: ACETAMINOPHEN 325 MG TABLET PO PRN (19:57)
[2020-03-30] MEDS: ZOLPIDEM 5MG TABLET PO SCH (19:58)
[2020-03-31 06:18] LABS: BASOPHILS # (AUTO) 0.02 x10^3/uL (0-0.1); BASOPHILS % (AUTO) 0 % (0-1); EOSINOPHILS # (AUTO) 0.08 x10^3/uL (0-0.4); EOSINOPHILS % (AUTO) 2 % (1-7); LYMPHOCYTES # (AUTO) 1.76 x10^3/uL (1-3.4); LYMPHOCYTES % (AUTO) 35 % (22-44); MD NO; MEAN CORPUSCULAR HEMOGLOBIN 31.4 pg (27.5-34.5); MEAN CORPUSCULAR HGB CONC 34.5 g/dL (33.2-36.2); MEAN CORPUSCULAR VOLUME 91.1 fL (81-97); MEAN PLATELET VOLUME 8.1 fL (7.4-10.4); MONOCYTES # (AUTO) 0.45 x10^3/uL (0.2-0.8); MONOCYTES % (AUTO) 9 % (2-9); NEUTROPHILS # (AUTO) 2.75 x10^3/uL (1.8-6.8); NEUTROPHILS % (AUTO) 54 % (42-75); PLATELET COUNT 188 x10^3/uL (130-400); RED BLOOD COUNT 4.96 x10^6/uL (4.38-5.82); RED CELL DISTRIBUTION WIDTH 13.1 % (9.4-14.8)
[2020-03-31 06:21] LABS: ALBUMIN 3.7 g/dL (3.4-5.0); ANION GAP 6 mmol/L (5-15); CALCIUM 8.7 mg/dL (8.5-10.1); CHLORIDE 107 mmol/L (98-107)
[2020-03-31 06:30] LABS: ALANINE AMINOTRANSFERASE 33 U/L (12-78); ALKALINE PHOSPHATASE 62 U/L (45-117); BILIRUBIN,TOTAL 0.6 mg/dL (0.2-1.0); CHOL/HDL RATIO 5.1; CHOLESTEROL, TOTAL 193 mg/dL (140-239); CREATININE 0.69 mg/dL (0.7-1.3); FREE T4 (FREE THYROXINE) 1.07 ng/dL (0.76-1.46); HDL CHOL % 20 % (26-37); HDL CHOLESTEROL (DIRECT) 38 mg/dL (40-60); LDL CHOLESTEROL,CALCULATED 128 mg/dL (54-169); LDL/HDL RATIO 3.4 (0.5-3.0); TOTAL PROTEIN 6.9 g/dL (6.4-8.2); TRIGLYCERIDES 137 mg/dL (50-200); VLDL CHOLESTEROL 27 mg/dL (0-25)
[2020-03-31 07:00] VITALS: BP 115/76
[2020-03-31] MEDS ORDERED: METHYLPHENIDATE 10 MG TABLET PO SCH (08:00)
[2020-03-31] MEDS: METHYLPHENIDATE 10 MG TABLET PO SCH ×2 (08:55→12:47)
[2020-03-31] MEDS: ACETAMINOPHEN 325 MG TABLET PO PRN ×2 (09:24→17:23)
[2020-03-31] MEDS: CARBAMAZEPINE XR 200 MG TABLET PO SCH ×2 (16:38→20:24)
[2020-03-31] MEDS: NICOTINE 21 MG/24 HR PATCH.TD24 TD SCH (16:40)
[2020-03-31 19:48] VITALS: BP 126/80
[2020-03-31] MEDS: ZOLPIDEM 5MG TABLET PO SCH (20:24)
[2020-04-01 07:00] VITALS: BP 113/80
[2020-04-01] MEDS: CARBAMAZEPINE XR 200 MG TABLET PO SCH ×2 (08:39→20:23)
[2020-04-01] MEDS: NICOTINE 21 MG/24 HR PATCH.TD24 TD SCH (08:40)
[2020-04-01] MEDS: METHYLPHENIDATE 10 MG TABLET PO SCH ×2 (09:29→12:08)
[2020-04-01 19:19] VITALS: BP 140/85
[2020-04-01] MEDS: ZOLPIDEM 5MG TABLET PO SCH (20:23)
[2020-04-02 00:38] LABS: MICROSCOPIC INDICATED
[2020-04-02 07:30] VITALS: BP 101/67
[2020-04-02] MEDS: METHYLPHENIDATE 10 MG TABLET PO SCH ×2 (08:23→12:30)
[2020-04-02] MEDS: CARBAMAZEPINE XR 200 MG TABLET PO SCH ×2 (08:23→20:09)
[2020-04-02] MEDS: NICOTINE 21 MG/24 HR PATCH.TD24 TD SCH (08:24)
[2020-04-02] MEDS ORDERED: QUETIAPINE 25MG TABLET ONE (16:17)
[2020-04-02] MEDS ORDERED: QUETIAPINE 25MG TABLET PO ONE (16:30)
[2020-04-02 19:15] VITALS: BP 109/70
[2020-04-02] MEDS: ZOLPIDEM 5MG TABLET PO SCH (20:09)
[2020-04-02] MEDS ORDERED: QUETIAPINE 100MG TABLET ONE (21:20)
[2020-04-02] MEDS ORDERED: QUETIAPINE 100MG TABLET PO ONE (21:30)
[2020-04-03] MEDS: ACETAMINOPHEN 325 MG TABLET PO PRN ×2 (05:20→20:35)
[2020-04-03 07:26] VITALS: BP 111/72
[2020-04-03] MEDS: NICOTINE 21 MG/24 HR PATCH.TD24 TD SCH (08:35)
[2020-04-03] MEDS: CARBAMAZEPINE XR 200 MG TABLET PO SCH ×2 (08:35→20:35)
[2020-04-03] MEDS: METHYLPHENIDATE 10 MG TABLET PO SCH ×2 (08:36→12:24)
[2020-04-03] MEDS ORDERED: NICO-487 TD (14:15)
[2020-04-03] MEDS ORDERED: CARB200T2 PO (14:15)
[2020-04-03 19:15] VITALS: BP 128/88
[2020-04-03] MEDS: ZOLPIDEM 5MG TABLET PO SCH (20:35)
[2020-04-04 07:26] VITALS: BP 113/74
[2020-04-04] MEDS: METHYLPHENIDATE 10 MG TABLET PO SCH (08:33)
[2020-04-04] MEDS: NICOTINE 21 MG/24 HR PATCH.TD24 TD SCH (08:33)
[2020-04-04] MEDS: CARBAMAZEPINE XR 200 MG TABLET PO SCH (08:34)
== END 2020-04-04 10:47 | disposition home or self-care (01) | DRG 750 ==
LOC: 3E 12:27
PROVIDERS: ADMIT Psychiatry & Neurology Psychosomatic Medicine; ATTEND Psychiatry & Neurology Psychosomatic Medicine
DX: F25.0 Schizoaffective disorder, bipolar type (principal); F15.90 Other stimulant use, unspecified, uncomplicated; F41.1 Generalized anxiety disorder; F42.9 Obsessive-compulsive disorder, unspecified; F90.9 Attention-deficit hyperactivity disorder, unspecified type; F98.8 Other specified behavioral and emotional disorders with onset usually occurring in childhood and adolescence; G47.00 Insomnia, unspecified; F17.210 Nicotine dependence, cigarettes, uncomplicated; Z79.899 Other long term (current) drug therapy; Z81.8 Family history of other mental and behavioral disorders; Z82.5 Family history of asthma and other chronic lower respiratory diseases; Z83.3 Family history of diabetes mellitus
CPT/HCPCS: 36415; 71045; 80053; 80061; 81001; 84439; 84443; 85025; 87086; 93005

== ENCOUNTER → 2020-04-17 | Emergency (ER) | payer MEDICAID ==
[~2020-04-17] VITALS: Ht 185.4 cm; Wt 90.0 kg
[~2020-04-17] MED LIST changes: +ACETAMINOPHEN 500 MG TABLET ONE; +ACETAMINOPHEN 500 MG TABLET PO ONE; +CARB200T2 PO; +LORazepam 1MG TABLET ONE; +LORazepam 1MG TABLET PO ONE; +OLANZAPINE 10 MG TABLET ONE; +TRAZODONE 50MG TABLET PO PRN; +ZIPRASIDONE 20 MG INJ IM ONE; +ZOLP5TAB PO
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
--- NOTE | 2020-04-17 15:13 | NUR ---
patient in bed, all belongings locked in bag in locker, and he is in gown, rails up in bed with sitter. he is asking for pain meds and ativan. he states he does drugs a lot including "crack" and meth. he states he was threatening his family but denies si.
--- NOTE | 2020-04-17 15:35 | NUR ---
patient escalating, screaming out and getting frustrated. got MD Sebastian who assessed/wrote orders for patient.
[2020-04-17 16:19] LABS: BASOPHILS # (AUTO) 0.01 x10^3/uL (0-0.1); BASOPHILS % (AUTO) 0 % (0-1); EOSINOPHILS # (AUTO) 0.06 x10^3/uL (0-0.4); EOSINOPHILS % (AUTO) 1 % (1-7); LYMPHOCYTES # (AUTO) 1.45 x10^3/uL (1-3.4); LYMPHOCYTES % (AUTO) 19 % (22-44); MD NO; MEAN CORPUSCULAR HEMOGLOBIN 31.8 pg (27.5-34.5); MEAN CORPUSCULAR HGB CONC 34.4 g/dL (33.2-36.2); MEAN CORPUSCULAR VOLUME 92.2 fL (81-97); MEAN PLATELET VOLUME 7.9 fL (7.4-10.4); MONOCYTES # (AUTO) 0.52 x10^3/uL (0.2-0.8); MONOCYTES % (AUTO) 7 % (2-9); NEUTROPHILS % (AUTO) 73 % (42-75); PLATELET COUNT 268 x10^3/uL (130-400); RED BLOOD COUNT 5.64 x10^6/uL (4.38-5.82); RED CELL DISTRIBUTION WIDTH 13.8 % (9.4-14.8)
--- NOTE | 2020-04-17 16:19 | NUR ---
got patient a sandwich and food
[2020-04-17] MEDS: OLANZAPINE 10 MG TABLET PO SCH (16:24)
--- NOTE | 2020-04-17 16:24 | NUR ---
patient scarfed down entire dinner plate messily. he tried x 1 to run out door. he is asking for meds: pain, anxiety, and things to relax him. gave zyprexa. patient is anxious, aggressive. asking him to stay put, he starts laughing uncontrollably
[2020-04-17 16:31] LABS: ALBUMIN 4.4 g/dL (3.4-5.0); ANION GAP 5 mmol/L (5-15); CALCIUM 9.1 mg/dL (8.5-10.1); CHLORIDE 108 mmol/L (98-107)
[2020-04-17 16:31] LABS: AMPHETAMINE SCREEN, URINE Negative (Negative); BARBITURATE SCREEN, URINE Negative (Negative); BENZODIAZEPINE SCREEN, URINE Negative (Negative); CANNABINOID SCREEN, URINE Positive (Negative); COCAINE SCREEN, URINE Negative (Negative); METHADONE SCREEN, URINE Negative (Negative); OPIATE SCREEN, URINE Negative (Negative)
[2020-04-17 16:33] LABS: SALICYLATE LEVEL < 1.7 mg/dL (2.8-20.0)
[2020-04-17 16:34] LABS: ALANINE AMINOTRANSFERASE 58 U/L (12-78); ALKALINE PHOSPHATASE 88 U/L (45-117); BILIRUBIN,TOTAL 0.7 mg/dL (0.2-1.0); CREATININE 0.95 mg/dL (0.7-1.3); TOTAL PROTEIN 8.5 g/dL (6.4-8.2)
--- NOTE | 2020-04-17 16:34 | NUR ---
GOT SECURITY TO HELP GET PATIENT IN BED. HE IS PACING AROUND ROOM PULLING AT RAILS AND GARAGE DOORS. HE CALMED WITH THEM PRESENT, AND WE WILL CONTINUE TO MONITOR
--- NOTE | 2020-04-17 16:54 | NUR ---
patient tying himself up in his gown, pacing around, standing at door shouting. screaming for COFFEE. told him no and he needs to calm down
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
--- NOTE | 2020-04-17 17:35 | NUR ---
-Mother-Veena Yateser
--- NOTE | 2020-04-17 17:48 | NUR ---
patient pacing around room.
--- NOTE | 2020-04-17 18:06 | NUR ---
gave patient crackers, he keeps begging for more food. he has had a dinner tray already. patient medicated with prn ativan. he is pacing around room wearing gown over his head in his undewear.
--- NOTE | 2020-04-17 18:50 | NUR ---
REPORT RECEIVED FROM KARL RN, PT CARE TRANSFERRED AT THIS TIME. PT IS RESTING IN GURNEY RESTRAINED UPON RECEIVING REPORT, VSS, P/W/D, NAD, FCS no SOB, DENIES ADDITIONAL NEEDS AT THIS TIME. SITTER IN LINE OF SIGHT, ABDIAS.
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
--- NOTE | 2020-04-17 19:31 | NUR ---
NELIDA RN: [facility] CALLED AND STATED THEY WILL BE TAKING A LOOK AT PT. TO DECIDE IF PT. WILL BE ACCEPTED.
--- NOTE | 2020-04-17 20:01 | NUR ---
pt given meal tray per request, pt is NAD, RESP WNL, VSS, skin color WNL warm and dry, MAEx4, +CMS, gross neuro intact, PERRLA, rushed FCS. WCTM. Waiting to meet public information relations manager tomorrow and on possible admit to psych facility.
--- NOTE | 2020-04-17 20:29 | NUR ---
TP RN: CALLED BACK TO [facility]; THEY HAVE NOT HAD A CHANCE TO LOOK INTO PT. FOR ACCEPTANCE YET.
--- NOTE | 2020-04-17 20:41 | NUR ---
Pt sleeping comfortably on gurney. PRIYANKN. Sitter in hallway. Roller doors remain in place. Utilizing proper manners while speaking to this rn. No immediate needs from pt. Thankful for meal tray provided.
--- NOTE | 2020-04-17 21:51 | NUR ---
[facility] CALLED AND DENIED PT BUT WILL REFER TO DORA.
--- NOTE | 2020-04-17 21:52 | NUR ---
PACKET FAXED TO [facility], [facility], AND [facility] PT. WAS DENIED BY [facility]. CONFIRMATION FAX RECEIVED.
--- NOTE | 2020-04-17 22:50 | NUR ---
pt resting in gurney, eyes closed, RESP WNL, P/W/D, sitter in line of sight. WCTM.
--- NOTE | 2020-04-17 23:59 | NUR ---
PT MOVED INTO HOSPITAL BED WHILE HE WAS AWAKE, AMBULATED TO AND FROM RESTROOM WITH A SMOOTH AND STEADY GAIT AT THIS TIME. NAD. RESP WNL. SKIN COLOR WNL WARM AND DRY. GIVEN WATER CUP PER REQUEST, LIGHTS DIMMED FOR COMFORT, SITTER IN LINE OF SIGHT. WCTM.
--- NOTE | 2020-04-18 00:24 | NUR ---
PT RESTING IN HOSPITAL BED, NAD, NO CHANGE IN CONDITION, EYES CLOSED. SITTER IN LINE OF SIGHT. WCTM.
--- NOTE | 2020-04-18 01:28 | NUR ---
PT RESTING IN HOSPITAL BED UNDER COVERS, RESP WNL, EQUAL CHEST RISE AND FALL, NAD, EYES CLOSED, SITTER IN LINE OF SIGHT, WCTM.
--- NOTE | 2020-04-18 02:54 | NUR ---
PT RESTING IN GURNEY, EYES CLOSED, NO CHANGED IN CONDITION, SITTER IN LINE OF SIGHT. WCTM.
--- NOTE | 2020-04-18 04:12 | NUR ---
PT RESTING IN GURNEY, EYES CLOSED, NO CHANGED IN CONDITION, SITTER IN LINE OF SIGHT. WCTM.
--- NOTE | 2020-04-18 05:15 | NUR ---
pt up and active starting approximately 30 minutes ago. Pt started out sittin gup in bed, requesting snakcs. RN gave pt juice and crackers for comfort. pt was quiet for another 15 minutes then became increasingly anxious, pacing room, rubbing hands up and down arms, doing push ups in room and unable to stay still, speech became increasingly rushed no SOB noted. Pt requested something for anxiety as he was "starting to feel really anxious". RN medicated pt per JAN. Pt requested to use phone to call mother, RN walking pt to phone and showed pt how to dial out of the facility. Pt ambulated with a smooth and steady gait. Given socks for comfort, NAD, RESP WNL, skin color WNL warm and dry. RN asked pt to clean up all trash in room then gave pt vanilla pudding with SI spoon once task was completed. Pt now sitting in bed eating snack. TM.
--- NOTE | 2020-04-18 06:19 | NUR ---
Pt sitting on bed watching tv, RESP WNL, skin color WNL warm and dry, NAD, FCS no SOB, speech still rushed, pt breakfast tray ordered. Sitter within line of sight, [facility].
--- NOTE | 2020-04-18 06:42 | NUR ---
Pt sitting on bed watching tv, condition unchanged. Sitter within line of sight, WCTM.
--- NOTE | 2020-04-18 06:50 | NUR ---
pt now resting in hospital bed, eyes closed, appears to be resting, NAD, RESP WNL, sitter in line of sight. WCTM.
--- NOTE | 2020-04-18 06:59 | NUR ---
Bedside report to Pam RN, pt care transferred at this time.
--- NOTE | 2020-04-18 07:05 | NUR ---
pt resting calmly in bed at this time with eyes closed. sitter at door
[2020-04-18 08:21] VITALS: BP 111/75
--- NOTE | 2020-04-18 08:24 | NUR ---
pt given breakfast tray. VSS. pt reporting mouth pain, pt not having any problems eating however. sitter at door for frequent obs.
[2020-04-18] MEDS: OLANZAPINE 10 MG TABLET PO SCH (08:37)
--- NOTE | 2020-04-18 09:52 | NUR ---
PT RESTING CALMLY IN BED. NO STATED NEEDS AT THIS TIME. WILL CONTINUE TO MONITOR. SITTER AT DOOR.
--- NOTE | 2020-04-18 10:35 | NUR ---
pt becoming increasingly agitated. pt calling healthcare market consultant light frequently, repeatedly asking for food, flipping gown over head, pacing in room and standing in [place]. pt medicated per emar for agitation. pt also medicated for pain in left upper jaw tooth with ordered meds. pt given second meal per pt request. sitter at door. will continue to monitor.
--- NOTE | 2020-04-18 11:29 | NUR ---
pt resting calmly in bed. no stated needs currently. will continue to monitor. sitter at door.
--- NOTE | 2020-04-18 11:59 | NUR ---
BREAK RN FOR PRIMARY RN OSHAUNESSY. CARE ASSUMED FOR BREAK AT THIS TIME. PT RESTING IN POSITION OF COMFORT ON HOSPITAL BED WITH EYES CLOSED. RESP REGULAR, EVEN UNLABORED WITH EQUAL CHEST RISE. NAD NOTED. ALL NEEDS MET AND ADDRESSED AT THIS TIME. DENIES NEED TO USE RESTROOM. FALL PRECAUTIONS IN PLACE. SITTER AT DOOR FOR CONTINUOUS SAFETY OBSERVATION. PT IN MONITOR ROOM WITH GARAGE DOORS DOWN, SAFE ENVIRONMENT PROVIDED.
--- NOTE | 2020-04-18 12:15 | NUR ---
BREAK RN. MEAL TRAY ORDERED
--- NOTE | 2020-04-18 12:33 | NUR ---
BREAK RN. REPORT AND CARE BACK TO PRIMARY RN OSHAUNESSY AT THIS TIME.
--- NOTE | 2020-04-18 13:32 | NUR ---
PT RESTING CALMLY IN BED WITH EYES CLOSED. NO STATED NEEDS, SITTER AT DOOR.
--- NOTE | 2020-04-18 14:02 | NUR ---
PT GIVEN LUNCH TRAY. PT HAS BEEN RESTING SOMULENTLY IN BED. WILL CONTINUE TO MONITOR. SITTER AT DOOR.
--- NOTE | 2020-04-18 15:21 | NUR ---
pt resting in bed with eyes closed. no stated needs at this time. sitter at door. pt finished meal tray.
--- NOTE | 2020-04-18 16:13 | NUR ---
PT RESTING COMFORTABLY IN BED. NO STATED NEEDS. SITTER AT DOOR.
--- NOTE | 2020-04-18 17:21 | NUR ---
PT GIVEN JUICE AND CRACKERS. STILL AWAITING DINNER TRAYS. PT ASKING FOR SCHEDULED MEDS. PT INFORMED THERE ARE NO SCHEDULED MEDS AT THIS TIME. PT NOT APPEARING TO BE ANXIOUS AT THIS TIME, PT RESTING CALMLY IN BED. WILL HOLD ORDERED PRN ANXIETY MEDS AND CONTINUE TO ASSESS.
--- NOTE | 2020-04-18 18:16 | NUR ---
PT RESTING IN BED EATING AT THIS TIME. PT GIVEN MEAL TRAY. SITTER AT DOOR. WILL CONTINUE TO MONITOR.
--- NOTE | 2020-04-18 18:27 | NUR ---
pt up standing in door way. pt asking for anxiety meds, stated, "I really need something, I'm having bad thoughts". pt medicated per EMAR for anxiety. pt calm cooperative at this time. will continue to monitor. sitter at door.
--- NOTE | 2020-04-18 19:00 | NUR ---
BEDSIDE REPORT TO IVY MAURO
--- NOTE | 2020-04-18 19:03 | NUR ---
REPORT FROM WENDI MAURO.
--- NOTE | 2020-04-18 19:20 | NUR ---
PT RESTING ON BED, EVEN AND UNLABORED RESPIRATIONS. SAFETY PRECAUTIONS IN PLACE, SITTER AT DOORWAY FOR SAFETY MONITORING.
--- NOTE | 2020-04-18 19:34 | NUR ---
REPORT GIVEN TO ILEANA MAURO.
== END ==
LOC: ED 16:06
DX: R45.851 Suicidal ideations (principal); F29 Unspecified psychosis not due to a substance or known physiological condition; I10 Essential (primary) hypertension
CPT/HCPCS: 36415; 80053; 80307; 85025; 99284; J3486

== ENCOUNTER 2020-04-18 16:18 | Inpatient (IN) | payer MEDICAID ==
[~2020-04-18] VITALS: Ht 182.9 cm; Wt 82.2 kg
[~2020-04-18 16:18] MED LIST changes: -ACETAMINOPHEN 500 MG TABLET ONE; -ACETAMINOPHEN 500 MG TABLET PO ONE; -LORazepam 1MG TABLET ONE; -LORazepam 1MG TABLET PO ONE; -OLANZAPINE 10 MG TABLET ONE; -TRAZODONE 50MG TABLET PO PRN; -ZIPRASIDONE 20 MG INJ IM ONE
[2020-04-18] MEDS ORDERED: BISACODYL 10 MG SUPP PR PRN (20:00)
[2020-04-18] MEDS ORDERED: POLYETHYLENE GLYCOL 17 GM PACKET PO PRN (20:00)
[2020-04-18] MEDS ORDERED: DOCUSATE 100 MG CAPSULE PO PRN (20:00)
[2020-04-18] MEDS ORDERED: ONDANSETRON ODT 4 MG PO PRN (20:00)
[2020-04-18 20:22] VITALS: BP 132/81
[2020-04-18] MEDS: CARBAMAZEPINE 100 MG TAB.CHEW PO SCH (21:08)
[2020-04-18] MEDS: OLANZAPINE ODT 10MG PO SCH (21:08)
[2020-04-18] MEDS: ACETAMINOPHEN 325 MG TABLET PO PRN (21:09)
[2020-04-18] MEDS: QUETIAPINE 100MG TABLET PO SCH (21:09)
[2020-04-18 23:53] VITALS: BP 132/81
[2020-04-19] MEDS: ACETAMINOPHEN 325 MG TABLET PO PRN (04:44)
[2020-04-19 07:56] VITALS: BP 113/74
[2020-04-19] MEDS: CARBAMAZEPINE 100 MG TAB.CHEW PO SCH ×2 (08:44→20:07)
[2020-04-19] MEDS: OLANZAPINE ODT 10MG PO SCH ×2 (08:44→20:07)
[2020-04-19] MEDS: NICOTINE 21 MG/24 HR PATCH.TD24 TD SCH (08:44)
[2020-04-19 19:53] VITALS: BP 134/90
[2020-04-19] MEDS: QUETIAPINE 100MG TABLET PO SCH (20:07)
[2020-04-19] MEDS ORDERED: ZOLPIDEM 10MG TABLET ONE (20:17)
[2020-04-19] MEDS ORDERED: ZOLPIDEM 10MG TABLET PO ONE (21:00)
[2020-04-20 07:00] VITALS: BP 113/76
[2020-04-20] MEDS: NICOTINE 21 MG/24 HR PATCH.TD24 TD SCH (08:47)
[2020-04-20] MEDS: CARBAMAZEPINE 100 MG TAB.CHEW PO SCH ×2 (08:47→20:45)
[2020-04-20] MEDS: OLANZAPINE ODT 10MG PO SCH ×2 (08:47→20:46)
[2020-04-20] MEDS: ACETAMINOPHEN 325 MG TABLET PO PRN ×2 (19:36→22:57)
[2020-04-20 19:51] VITALS: BP 128/88
[2020-04-20] MEDS: QUETIAPINE 100MG TABLET PO SCH (20:45)
[2020-04-20] MEDS: ZOLPIDEM 10MG TABLET PO PRN (21:04)
[2020-04-21 07:00] VITALS: BP 112/72
[2020-04-21] MEDS: NICOTINE 21 MG/24 HR PATCH.TD24 TD SCH (08:22)
[2020-04-21] MEDS: OLANZAPINE ODT 10MG PO SCH ×2 (08:23→20:43)
[2020-04-21] MEDS: CARBAMAZEPINE 100 MG TAB.CHEW PO SCH ×2 (08:23→20:43)
[2020-04-21] MEDS ORDERED: CALCIUM CARBONATE 500 MG TAB.CHEW PO PRN (14:30)
[2020-04-21] MEDS ORDERED: DIAZEPAM 10 MG TABLET PO ONE (16:30)
[2020-04-21] MEDS ORDERED: RISPERIDONE 2 MG TABLET PO ONE (16:30)
[2020-04-21 19:29] VITALS: BP 143/82
[2020-04-21] MEDS: ACETAMINOPHEN 325 MG TABLET PO PRN (20:43)
[2020-04-21] MEDS: ZOLPIDEM 10MG TABLET PO PRN (20:43)
[2020-04-21] MEDS: QUETIAPINE 100MG TABLET PO SCH (20:43)
[2020-04-22 07:29] VITALS: BP 110/70
[2020-04-22] MEDS: CARBAMAZEPINE 100 MG TAB.CHEW PO SCH ×2 (08:29→20:14)
[2020-04-22] MEDS: OLANZAPINE ODT 10MG PO SCH ×2 (08:29→20:14)
[2020-04-22] MEDS: NICOTINE 21 MG/24 HR PATCH.TD24 TD SCH (08:29)
[2020-04-22 19:08] VITALS: BP 124/82
[2020-04-22] MEDS: ZOLPIDEM 10MG TABLET PO PRN (20:14)
[2020-04-22] MEDS: QUETIAPINE 100MG TABLET PO SCH (20:14)
[2020-04-22] MEDS: ACETAMINOPHEN 325 MG TABLET PO PRN (22:13)
[2020-04-23 07:37] VITALS: BP 121/77
[2020-04-23] MEDS: OLANZAPINE ODT 10MG PO SCH ×2 (09:28→20:16)
[2020-04-23] MEDS: CARBAMAZEPINE 100 MG TAB.CHEW PO SCH ×2 (09:29→20:16)
[2020-04-23] MEDS: NICOTINE 21 MG/24 HR PATCH.TD24 TD SCH (09:29)
[2020-04-23] MEDS ORDERED: OLAN10TA7 PO (11:41)
[2020-04-23] MEDS ORDERED: CLON0.1T22 PO (12:04)
[2020-04-23 19:30] VITALS: BP 125/85
[2020-04-23] MEDS: QUETIAPINE 100MG TABLET PO SCH (20:17)
[2020-04-23] MEDS: ZOLPIDEM 10MG TABLET PO PRN (20:19)
[2020-04-23] MEDS: ACETAMINOPHEN 325 MG TABLET PO PRN (21:32)
[2020-04-24] MEDS: OLANZAPINE ODT 10MG PO SCH (08:42)
[2020-04-24] MEDS: CARBAMAZEPINE 100 MG TAB.CHEW PO SCH (08:42)
[2020-04-24] MEDS: NICOTINE 21 MG/24 HR PATCH.TD24 TD SCH (08:42)
== END 2020-04-24 11:30 | disposition home or self-care (01) | DRG 750 ==
LOC: 3E 19:52
PROVIDERS: ADMIT Psychiatry & Neurology Psychosomatic Medicine; ATTEND Psychiatry & Neurology Psychosomatic Medicine
DX: F25.0 Schizoaffective disorder, bipolar type (principal); F15.20 Other stimulant dependence, uncomplicated; R45.851 Suicidal ideations; F41.1 Generalized anxiety disorder; F42.9 Obsessive-compulsive disorder, unspecified; F90.9 Attention-deficit hyperactivity disorder, unspecified type; G47.00 Insomnia, unspecified; F17.210 Nicotine dependence, cigarettes, uncomplicated; F10.20 Alcohol dependence, uncomplicated; Z79.899 Other long term (current) drug therapy; Z82.49 Family history of ischemic heart disease and other diseases of the circulatory system; Z98.84 Bariatric surgery status; Z83.3 Family history of diabetes mellitus; Z82.5 Family history of asthma and other chronic lower respiratory diseases
CPT/HCPCS: 36415; 80053; 80307; 85025; 99284; J3486; Q0177

== ENCOUNTER 2020-11-14 02:15 | Emergency (ER) | payer MEDICAID ==
[~2020-11-14 02:15] MED LIST changes: +CLON0.1T22 PO; -NICO-487 TD; +NICO-587 TD; +OLAN10TA7 PO
== END 2020-11-14 02:28 ==
LOC: ED 02:22
DX: R68.89 Other general symptoms and signs (principal); Z53.21 Procedure and treatment not carried out due to patient leaving prior to being seen by health care provider
CPT/HCPCS: 99283

== ENCOUNTER 2020-11-25 18:22 | Emergency (ER) | payer MEDICAID ==
[~2020-11-25] VITALS: Ht 175.3 cm; Wt 80.3 kg
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
--- NOTE | 2020-11-25 18:47 | NUR ---
REPORT TO JERROD
--- NOTE | 2020-11-25 19:06 | NUR ---
PATIENT RESTING IN STRETCHER WITH EYES CLOSED; VS REMAIN STABLE. BILATERAL SOFT WRITS RESTRIANTS REMOVED WITH 2ND RN AND PATIENT IMMEDIATELY PUT FULL LEFT HAND IN MOUTH IN AND OUT TO ATTEMPT STIMULATING GAG REFLEX. INJURING MOUTH WITH EVIDENCE BY BLOOD TINGED SPUTUM ON END OF FINGER TIPS AND SLIGHT VOMITUS ON BLANKETS. MD AND MOTOR TESTER AWARE AND [id number] WITH PATIENT. WRIST RESTRAINTS REAPPLIED WITH 2ND RN. SAFETY MAINTAINED. BE DIN LOWEST POSITION. LIGHTS ON IN ROOM FOR VISUAL SAFETY. CALL ABEL IN REACH. ROM PERFORMED. NO SKIN BREAKDOWN FROM RESTRAINTS.
--- NOTE | 2020-11-25 19:46 | NUR ---
PATIENT REPOSITIONED ON L LATERAL SIDE. BILATER UE ROM PERFORMED AND RESTRAINTS REMOVED AND REPOSITIONED. PATIENT PULLING ON L WRIST RESTRAINT AND CAUSING REDNESS TO WRIST. + PALPABLE PULSE. THIS WAS REPOSITIONED. WARM BLANKETS PROVIDED. PATIENT LETHARGIC BUT RESTLESS. ABLE TO AROUSE AND ANSWER QUESTIONS. ORIENTED TO PLACE, TIME AND SELF BUT DISORIENTED TO SITUATION. PATIENT HAS NUMEROUS AREAS OF BLOODY VOMITUS SPUTUM IN LINENS AND ON PERSON. THIS HAS BEEN CLEANED MULTIPLE TIMES AND UNABLE TO CONTINUOUSLY KEEP PATIENT CLEAN AT ALL TIMES. WILL CONTINUE TO MONITOR THIS AND MONITOR AIRWAY. CALL ABEL IN REACH. BED IN LOWEST POSITION. WILL CONTINUE TO MONITOR.
--- NOTE | 2020-11-25 20:55 | NUR ---
patient resting in bed with eyes closed on L lateral side. bilateral wrist restraints assessed and R wrist restraint repositioned. patient has R hand near face with how he is positioned in bed. closely monitoring patient's behavior for safety concerns with previous actions of putting fingers/hand in mouth to stimulate gag reflex. none at this time. will continue to assess and re-evaluate this for dc of BUE wrist restraints. patient verbal with staff but keeps eyes closed. very polite at this time. requests another warm blanket. this was provided. patient declines need to urinate at this time. will continue to monitor. safety maintained
--- NOTE | 2020-11-25 22:07 | NUR ---
PATIENT REQUESTING FOOD AND "SOMETHING FOR MY SORE THROAT". ORAL CAVITY ASSESSED BY RN AND ERYTHEMA VISUALIZED IN BACK OF THROAT/UVULA/TONSILS. PROVIDER NOTIFIED
[2020-11-25] MEDS ORDERED: MAALOX/HYOSCYAMINE/LIDOCAINE 45 ML BTL PO ONE (22:30)
[2020-11-25] MEDS ORDERED: ONDANSETRON ODT 4 MG PO ONE (22:30)
[2020-11-25] MEDS ORDERED: MAALOX/HYOSCYAMINE/LIDOCAINE 45 ML BTL ONE (22:37)
[2020-11-25] MEDS ORDERED: ONDANSETRON ODT 4 MG ONE (22:37)
--- NOTE | 2020-11-25 23:13 | NUR ---
PATIENT DENIES NAUSEA. PB&J SANDWICH PROVIDED WITH PO FLUIDS AND OTHER SNACKS. BILATERAL SOFT WRIST RESTRIANTS REMOVED. PATIENT NOW A&OX4. WIDE AWAKE NOW WELL. REQUESTING STAFF CALL MOTHER TO CALL TO COME SPIN INSTRUCTOR PATIENT.
--- NOTE | 2020-11-25 23:16 | NUR ---
PATIENT NOW ASKING IF HE CAN HAVE CAB VOUCHER INSTEAD OF CALLING MOTHER.
--- NOTE | 2020-11-25 23:28 | NUR ---
DISCHARGE INSTRUCTIONS REVIEWED WITH PATIENT. STEADY GAIT. PATIENT MADE AWARE OF SUPPORT RESOURCES IN DISCHARGE INSTRUCTIONS. VISITOR AT BEDSIDE. RN ASKED IF SHE WAS DRIVING HIM HOME AND PATIENT AND VISITOR BOTH STATED NO. PATIENT A&OX4. MUMBLING UNDER BREATH IN BETWEEN CONVERSATIONS WITH RN. ALL PERSONAL BELONGINGS WITH PATIENT ON DC. IV REMOVED PER DC PROTOCOL. +2 PALPABLE PULSES IN BUE. NO SKIN ABNORMALITIES FROM RESTRAINT USE. NO VOMITING. PATIENT TOLERATED FOOD.
[2020-11-25 23:34] VITALS: BP 136/84
== END 2020-11-25 23:36 | disposition home or self-care (01) ==
LOC: ED 20:52
DX: F10.229 Alcohol dependence with intoxication, unspecified (principal); F15.10 Other stimulant abuse, uncomplicated; R41.82 Altered mental status, unspecified; R11.2 Nausea with vomiting, unspecified; I10 Essential (primary) hypertension; E87.6 Hypokalemia; F17.200 Nicotine dependence, unspecified, uncomplicated; Y90.0 Blood alcohol level of less than 20 mg/100 ml
CPT/HCPCS: 99285; Q0162

== ENCOUNTER 2020-11-26 17:47 | Emergency (ER) | payer MEDICAID ==
[~2020-11-26] VITALS: Ht 177.8 cm; Wt 92.9 kg
[2020-11-26 17:48] VITALS: BP 132/90
--- NOTE | 2020-11-26 18:19 | NUR ---
NO ANSWER IN LOBBY
--- NOTE | 2020-11-26 18:28 | NUR ---
NA X2
--- NOTE | 2020-11-26 18:37 | NUR ---
NA X3
== END 2020-11-26 18:43 | disposition left against medical advice (07) ==
LOC: ED 18:00
DX: K08.89 Other specified disorders of teeth and supporting structures (principal); Z53.21 Procedure and treatment not carried out due to patient leaving prior to being seen by health care provider

== ENCOUNTER 2020-11-27 14:11 | Emergency (ER) | payer MEDICAID ==
[2020-11-27 14:16] VITALS: BP 144/96
--- NOTE | 2020-11-27 14:27 | NUR ---
rubber tester: security in triage. pt has repeatedly removed his mask and is very agitated
[2020-11-27] MEDS ORDERED: ZIPRASIDONE 20 MG INJ IM ONE ×2 (14:43→15:00)
[2020-11-27] MEDS ORDERED: PLEASE ENTER WEIGHT MC SCH (15:30)
== END 2020-11-27 16:09 | disposition home or self-care (01) ==
LOC: ED 15:45
DX: F15.129 Other stimulant abuse with intoxication, unspecified (principal); F41.9 Anxiety disorder, unspecified; I10 Essential (primary) hypertension
CPT/HCPCS: 96372; 99283; J3486

== ENCOUNTER 2020-12-04 20:17 | Emergency (ER) | payer MEDICAID ==
[~2020-12-04] VITALS: Ht 177.8 cm; Wt 75.0 kg
--- NOTE | 2020-12-04 20:25 | NUR ---
PT REFUSING VS AND MONITORING AT THIS TIME.
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
--- NOTE | 2020-12-04 20:53 | NUR ---
PT REFUSING TO ALLOW EMT TO CLEAN LACERATIONS ON RIGHT WORKMAN AND HEAD.
[2020-12-04] MEDS ORDERED: ACETAMINOPHEN 500 MG TABLET PO ONE (21:30)
[2020-12-04] MEDS ORDERED: ACETAMINOPHEN 500 MG TABLET ONE (21:55)
--- NOTE | 2020-12-04 22:06 | NUR ---
PT STILL REFUSING VITALS AND MONITORING AT THIS TIME.
--- NOTE | 2020-12-04 22:16 | NUR ---
PT ESCORTED OUT TO LOBBY BY SECURITY. PT'S MOM IN LOBBY TO TAKE HIM HOME. PT STATING "YOU BETTER FING GIVE ME A CAB VOUCHER." AND BEING VERBALLY ABUSIVE TO STAFF.
== END 2020-12-04 22:18 | disposition home or self-care (01) ==
LOC: ED 21:26
DX: S01.01XA Laceration without foreign body of scalp, initial encounter (principal); S81.811A Laceration without foreign body, right lower leg, initial encounter; F10.120 Alcohol abuse with intoxication, uncomplicated; M54.2 Cervicalgia; Z72.9 Problem related to lifestyle, unspecified; Y90.0 Blood alcohol level of less than 20 mg/100 ml; I10 Essential (primary) hypertension; W22.8XXA Striking against or struck by other objects, initial encounter; Y93.89 Activity, other specified; Y92.410 Unspecified street and highway as the place of occurrence of the external cause; Y99.8 Other external cause status
CPT/HCPCS: 12002; 70450; 72125; 99285

== ENCOUNTER 2021-03-14 18:26 | Emergency (ER) | payer MEDICAID ==
[~2021-03-14] VITALS: Ht 180.3 cm; Wt 76.7 kg
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
--- NOTE | 2021-03-14 18:35 | NUR ---
pt FSBS 127 NEGATIVE TURNER
--- NOTE | 2021-03-14 18:40 | NUR ---
while attempting to heck pt in, pt ambulated to BR to attempt urine sample. pt was found smoking in the BR security is now present for patient and staff safety
[2021-03-14] MEDS ORDERED: LORazepam 1MG TABLET ONE (18:43)
[2021-03-14] MEDS ORDERED: ZIPRASIDONE 20 MG INJ IM ONE ×2 (18:43→19:00)
--- NOTE | 2021-03-14 18:45 | NUR ---
Law has been to bedside for evaluation security remains at bedside pt uncooperative with questioning and assessment
[2021-03-14] MEDS ORDERED: LORazepam 1MG TABLET PO ONE (19:00)
--- NOTE | 2021-03-14 19:00 | NUR ---
pt has been medicated for anxiety and agitation bedside report to jannie MAURO pt has been undressed. belonings secured, labeled and placed in secure locker. 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
--- NOTE | 2021-03-14 19:02 | NUR ---
report recieved from taco posada. pt in [facility], medicated per sofi bolaños in line of sight
[2021-03-14 19:14] LABS: BASOPHILS % (AUTO) 0 % (0-1); EOSINOPHILS % (AUTO) 0 % (1-7); LYMPHOCYTES % (AUTO) 13 % (22-44); MEAN CORPUSCULAR HEMOGLOBIN 31.2 pg (27.5-34.5); MEAN PLATELET VOLUME 8.1 fL (7.4-10.4); MONOCYTES % (AUTO) 7 % (2-9); NEUTROPHILS % (AUTO) 80 % (42-75); PLATELET COUNT 235 x10^3/uL (130-400); RED BLOOD COUNT 4.73 x10^6/uL (4.38-5.82); RED CELL DISTRIBUTION WIDTH 13.1 % (9.4-14.8)
[2021-03-14 19:15] LABS: MD NO
[2021-03-14 19:20] LABS: ALANINE AMINOTRANSFERASE 77 U/L (12-78); ALBUMIN 3.8 g/dL (3.4-5.0); ANION GAP 6 mmol/L (5-15); CALCIUM 8.4 mg/dL (8.5-10.1); CHLORIDE 110 mmol/L (98-107); CREATININE 0.71 mg/dL (0.7-1.3); SALICYLATE LEVEL 1.7 mg/dL (2.8-20.0)
[2021-03-14 19:31] LABS: ALKALINE PHOSPHATASE 73 U/L (45-117); BILIRUBIN,TOTAL 0.4 mg/dL (0.2-1.0); TOTAL PROTEIN 7.1 g/dL (6.4-8.2)
--- NOTE | 2021-03-14 19:35 | NUR ---
pt provided some snacks, pt states he will stay in room and in bed. erp aware
[2021-03-14 19:51] LABS: AMPHETAMINE SCREEN, URINE Negative (Negative); BARBITURATE SCREEN, URINE Negative (Negative); BENZODIAZEPINE SCREEN, URINE Negative (Negative); CANNABINOID SCREEN, URINE Negative (Negative); COCAINE SCREEN, URINE Negative (Negative); METHADONE SCREEN, URINE Negative (Negative); OPIATE SCREEN, URINE Negative (Negative)
--- NOTE | 2021-03-14 21:03 | NUR ---
NELIDA RN: Spoke with Verónica Keri to review chart for admission.
--- NOTE | 2021-03-14 21:29 | NUR ---
TP RN: [facility] declines patient. Faxed packet to [facility], [facility], [facility], and [facility].
--- NOTE | 2021-03-14 21:45 | NUR ---
NELIDA RN: Spoke with Jose at [facility]. Denying patient for admission.
--- NOTE | 2021-03-14 21:47 | NUR ---
MERVIN FROM [facility] STATES THAT PT'S INSURANCE IS NOT ACCEPTED AND PT WILL BE SELF PAY. $4000 UPFRONT AND $800 PER DAY. WILL TALK WITH PT AND SEE IF THEY WILL BE WILLING TO DO THAT
--- NOTE | 2021-03-14 22:02 | NUR ---
pt states he is unable to be self pay
[2021-03-14] MEDS ORDERED: OLANZAPINE 10 MG TABLET ONE (22:17)
[2021-03-14] MEDS ORDERED: OLANZAPINE 10 MG TABLET PO ONE (22:30)
--- NOTE | 2021-03-14 22:46 | NUR ---
pt provided more food and medicated per emar, in line of sight of sofi
--- NOTE | 2021-03-15 01:27 | NUR ---
PT RESTING IN [facility], RESP EVEN/UNLABORED, IN LINE OF SIGHT OF SITTER
--- NOTE | 2021-03-15 03:43 | NUR ---
PT SLEEPING, RESP EVEN/UNLABORED, IN LINE OF SIGHT OF SITTER
--- NOTE | 2021-03-15 05:22 | NUR ---
pt resting, resp even/unlabored, in line of sight of sitter
--- NOTE | 2021-03-15 06:40 | NUR ---
TP RN: [facility] called to inform us that they are still at capacity and cannot accept patient at this time.
--- NOTE | 2021-03-15 07:01 | NUR ---
BEDSIDE REPORT FROM NJ PONCE
--- NOTE | 2021-03-15 07:22 | NUR ---
PT RESTING SIDE ON ED GURNEY WITH EYES CLOSED. EVEN RISE AND FALL OF CHEST NOTED. NAD. ROOM SECURED AND SITTER OUTSIDE IN FULL VIEW.
--- NOTE | 2021-03-15 08:10 | NUR ---
PT AWAKE AND FEELING ANXIOUS. MD MESSAGED REQUESTING ANXIETY MEDS.
--- NOTE | 2021-03-15 09:05 | NUR ---
PT. WAS AMBULATORY TO THE RESTROOM. PT.'S VSS ARE STABLE. PT. WAS GIVEN JUICE AND CRACKERS. PT.'S ROOM REMAINS SECURED. SITTER IS OUTSIDE OF THE ROOM.
--- NOTE | 2021-03-15 09:30 | NUR ---
PT DENIES SI/HI THOUGHTS SINCE LAST SCREENING. PT STATES HE FEELS MENTALLY BETTER. DENIES ANY PHYSCIAL COMPLAINT.
[2021-03-15] MEDS ORDERED: OLANZAPINE 10 MG TABLET ONE (11:38)
[2021-03-15] MEDS ORDERED: CARBAMAZEPINE 200 MG TABLET ONE (11:38)
[2021-03-15 11:41] VITALS: BP 136/80
--- NOTE | 2021-03-15 11:43 | NUR ---
TASK RN: MEDS ADMIN PER JAN. PT COMPLIANT WITH TUTOR COORDINATOR. PT STATES HIS MOM'S PHONE IS NOT CHARGED AT THIS TIME. SHAHEEN GARCIA NOTIFIED. SHAHEEN TO BE NOTIFIED WHEN PT MOM ARRIVES TO ED.
[2021-03-15] MEDS ORDERED: OLANZAPINE 10 MG TABLET PO ONE (12:00)
[2021-03-15] MEDS ORDERED: CARBAMAZEPINE 200 MG TABLET PO ONE (12:00)
--- NOTE | 2021-03-15 13:13 | NUR ---
PT AND MOM REC'VD DISCHARGE INSTRUCTIONS AND EDUCATION. PT AND MOM HAD NO FURTHER QUESTIONS. PT AND MOM AMBULATED TO DC AREA, STEADY GAIT.
== END 2021-03-15 13:31 ==
LOC: ED 19:56
DX: F23 Brief psychotic disorder (principal); R45.851 Suicidal ideations; R00.0 Tachycardia, unspecified
CPT/HCPCS: 36415; 80053; 80299; 80307; 80320; 80329; 84443; 85025; 93005; 96372; 99285; J3486; Q0177; G0480

== ENCOUNTER 2021-03-27 12:39 | Emergency (ER) | payer MEDICAID ==
[~2021-03-27] VITALS: Ht 170.2 cm; Wt 81.1 kg
[2021-03-27 12:47] VITALS: BP 140/92
--- NOTE | 2021-03-27 13:01 | NUR ---
PT BIB MOM, HE "HAS MENTAL PROBLEMS" PT FOUND UNKNOWN PILLS (2) IN STORE AND PT TOOK THEM TODAY, WITNESSED BY MOTHER. DR. DE GUZMAN TO BEDSIDE FOR EVALUATION. PT POSTIONED TO COMFORT. PT NON VERBAL AND IS PASSIVELY NON COMPLIANT DURING ASSESSMENT. MOTHER ACTING HISTORIAN. LISSET. VSS. TO BE ASSESSED BY ROHIT GARCIA
--- NOTE | 2021-03-27 13:03 | NUR ---
PT POSTIONED TO ANDRE. NADN. NICHOLE.
--- NOTE | 2021-03-27 13:31 | NUR ---
PT APPROACHED THIS RN WHILST WALKING DOWN THE SQUIRES WAY AND ASKED "DO YOU HAVE PILLS FOR ME" PT RETURNED TO ROOM AND UPDATED ON POC. AWAITING PSYCH SALES COUNSELOR TO SEE. MOTHER AT BEDSIDE.
--- NOTE | 2021-03-27 14:10 | NUR ---
task rn: psychiatry coin purse assembler at bedside
[2021-03-27 15:09] LABS: BASOPHILS % (AUTO) 0 % (0-1); EOSINOPHILS % (AUTO) 1 % (1-7); LYMPHOCYTES % (AUTO) 15 % (22-44); MEAN CORPUSCULAR HEMOGLOBIN 31.6 pg (27.5-34.5); MEAN CORPUSCULAR HGB CONC 34.9 g/dL (33.2-36.2); MONOCYTES % (AUTO) 7 % (2-9); NEUTROPHILS % (AUTO) 77 % (42-75); PLATELET COUNT 253 x10^3/uL (130-400); RED BLOOD COUNT 5.37 x10^6/uL (4.38-5.82); RED CELL DISTRIBUTION WIDTH 13.7 % (9.4-14.8)
[2021-03-27 15:10] LABS: MD NO
--- NOTE | 2021-03-27 15:16 | NUR ---
PT PLACED ON LEGAL HOLD. CLOTHING AND PERSONAL BLONGINGS PLACED AND STICKERED IN PT BELONGINGS BAG IN LOCKER. SI/HI PERCAUTIONS IN PLACE. SITTER AT BEDSIDE.
[2021-03-27 15:29] LABS: ANION GAP 6 mmol/L (5-15); CALCIUM 9.4 mg/dL (8.5-10.1); CHLORIDE 109 mmol/L (98-107); CREATININE 0.74 mg/dL (0.7-1.3)
[2021-03-27 15:30] LABS: ALANINE AMINOTRANSFERASE 33 U/L (12-78); ALBUMIN 4.4 g/dL (3.4-5.0); SALICYLATE LEVEL 2.9 mg/dL (2.8-20.0)
[2021-03-27 15:32] LABS: ALKALINE PHOSPHATASE 96 U/L (45-117); BILIRUBIN,TOTAL 0.6 mg/dL (0.2-1.0); TOTAL PROTEIN 8.1 g/dL (6.4-8.2)
[2021-03-27 15:34] LABS: AMPHETAMINE SCREEN, URINE Negative (Negative); BARBITURATE SCREEN, URINE Negative (Negative); BENZODIAZEPINE SCREEN, URINE Negative (Negative); CANNABINOID SCREEN, URINE Negative (Negative); COCAINE SCREEN, URINE Negative (Negative); METHADONE SCREEN, URINE Negative (Negative); OPIATE SCREEN, URINE Negative (Negative)
--- NOTE | 2021-03-27 16:12 | NUR ---
SBAR REPORT RECEIVED FROM [facility].
--- NOTE | 2021-03-27 16:36 | NUR ---
PT SITTING ON SENG BENEDICT IS BEDSIDE. SITTER AT [facility] FOR SAFETY. Addendum: 03/27/21 at 1638 by PIPO GARAGE DOORS [email or web address]
[2021-03-27] MEDS ORDERED: OXYC5TAB98 PO (17:37)
--- NOTE | 2021-03-27 17:43 | NUR ---
COVID SAMPLE COLLECTED AND WALKED DOWN, PT COOPERATIVE. DINNER TRAY PROVIDED. LISSET. SITTER BEDSIDE.
--- NOTE | 2021-03-27 17:58 | NUR ---
SBAR REPORT PROVIDED TO RACHID MAURO ON [facility].
== END 2021-03-27 18:14 ==
LOC: ED 13:24
DX: F23 Brief psychotic disorder (principal); Z20.822 Contact with and (suspected) exposure to COVID-19; I10 Essential (primary) hypertension; F31.9 Bipolar disorder, unspecified; F17.200 Nicotine dependence, unspecified, uncomplicated; R94.31 Abnormal electrocardiogram [ECG] [EKG]
CPT/HCPCS: 36415; 80053; 80299; 80307; 80320; 80329; 85025; 87426; 93005; 99284; G0480

== ENCOUNTER 2021-03-27 16:45 | Inpatient (IN) | payer MEDICAID ==
[~2021-03-27] VITALS: Ht 152.4 cm; Wt 80.4 kg
[2021-03-27] MEDS ORDERED: OXYC5TAB98 PO (17:37)
[2021-03-27] MEDS ORDERED: ONDANSETRON ODT 4 MG PO PRN (19:00)
[2021-03-27] MEDS ORDERED: POLYETHYLENE GLYCOL 17 GM PACKET PO PRN (19:00)
[2021-03-27] MEDS ORDERED: ACETAMINOPHEN 325 MG TABLET PO PRN (19:00)
[2021-03-27] MEDS ORDERED: BISACODYL 10 MG SUPP PR PRN (19:00)
[2021-03-27] MEDS ORDERED: DOCUSATE 100 MG CAPSULE PO PRN (19:00)
[2021-03-27 19:13] VITALS: BP 124/90
[2021-03-27 20:30] VITALS: BP 143/98
[2021-03-27] MEDS ORDERED: PLEASE ENTER HEIGHT AND WEIGHT MC SCH (21:00)
[2021-03-27] MEDS ORDERED: DOXEPIN 25 MG CAPSULE PO SCH (21:00)
[2021-03-28 06:33] LABS: CHOL/HDL RATIO 7.1; FREE T4 (FREE THYROXINE) 1.14 ng/dL (0.76-1.46); LDL/HDL RATIO 4.8 (0.5-3.0)
[2021-03-28 07:39] VITALS: BP 112/73
[2021-03-28] MEDS: NICOTINE 21 MG/24 HR PATCH.TD24 TD SCH (08:31)
[2021-03-28] MEDS: ACAMPROSATE 333 MG TABLET.DR PO SCH ×3 (08:32→20:39)
[2021-03-28] MEDS: ZIPRASIDONE 20MG CAPSULE PO SCH ×2 (12:00→20:39)
[2021-03-28] MEDS ORDERED: DIPHENHYDRAMINE 50 MG/ML, 1ML IM ONE (13:30)
[2021-03-28] MEDS ORDERED: ZIPRASIDONE 20 MG INJ IM ONE (13:30)
[2021-03-28] MEDS ORDERED: LORazepam 2 MG/ML, 1ML IM ONE (13:30)
[2021-03-28 14:53] LABS: TROPONIN I < 0.015 ng/mL (0.000-0.045)
[2021-03-28] MEDS: MULTIVITAMINS/MINERALS TABLET PO SCH (20:39)
[2021-03-28 20:41] LABS: MICROSCOPIC NOT IND
[2021-03-28 20:47] LABS: TROPONIN I < 0.015 ng/mL (0.000-0.045)
[2021-03-28] MEDS ORDERED: ZOLPIDEM 5MG TABLET PO ONE (21:00)
[2021-03-28] MEDS ORDERED: ZOLPIDEM 5MG TABLET PO SCH (21:00)
[2021-03-29 07:55] VITALS: BP 107/73
[2021-03-29] MEDS ORDERED: PALIPERIDONE 3 MG TAB.ER.24 PO SCH (08:30)
[2021-03-29] MEDS ORDERED: ZOLPIDEM 10MG TABLET PO PRN (09:00)
[2021-03-29] MEDS: LORazepam 1MG TABLET PO PRN ×3 (09:25→17:02)
[2021-03-29] MEDS: MULTIVITAMINS/MINERALS TABLET PO SCH ×2 (09:25→20:04)
[2021-03-29] MEDS: THIAMINE 100MG TABLET PO SCH (09:25)
[2021-03-29] MEDS: ACAMPROSATE 333 MG TABLET.DR PO SCH ×3 (09:25→20:04)
[2021-03-29] MEDS: NICOTINE 21 MG/24 HR PATCH.TD24 TD SCH (09:26)
[2021-03-29] MEDS ORDERED: DIPHENHYDRAMINE 50 MG/ML, 1ML ONE (09:46)
[2021-03-29] MEDS ORDERED: DIPHENHYDRAMINE 50 MG/ML, 1ML IM ONE (10:00)
[2021-03-29] MEDS ORDERED: LORazepam 2 MG/ML, 1ML ONE (13:24)
[2021-03-29] MEDS ORDERED: HALOPERIDOL 5 MG/ML ONE (13:24)
[2021-03-29] MEDS ORDERED: LORazepam 2 MG/ML, 1ML IM ONE (14:00)
[2021-03-29] MEDS ORDERED: HALOPERIDOL 5 MG/ML IM ONE (14:00)
[2021-03-29 19:41] VITALS: BP 111/76
[2021-03-30] MEDS: LORazepam 1MG TABLET PO PRN ×2 (04:37→10:05)
[2021-03-30 07:18] VITALS: BP 119/74
[2021-03-30] MEDS ORDERED: MULT-484 PO (08:29)
[2021-03-30] MEDS ORDERED: PALI3TAB11 PO (08:29)
[2021-03-30] MEDS ORDERED: ACAMPROSATE 333 MG TABLET.DR PO SCH (09:00)
[2021-03-30] MEDS ORDERED: PALIPERIDONE 3 MG TAB.ER.24 PO SCH (09:00)
[2021-03-30] MEDS: THIAMINE 100MG TABLET PO SCH (09:52)
[2021-03-30] MEDS: MULTIVITAMINS/MINERALS TABLET PO SCH (09:52)
[2021-03-30] MEDS: NICOTINE 21 MG/24 HR PATCH.TD24 TD SCH (09:53)
[2021-03-30] MEDS ORDERED: PALIPERIDONE PALMITATE 234 MG/1.5 ML IM ONE ×2 (10:00)
[2021-03-30 10:20] VITALS: BP 86/63
[2021-03-30 10:27] VITALS: BP 104/73
[2021-03-30 11:25] VITALS: BP 109/77
[2021-03-31] MEDS ORDERED: PALIPERIDONE 3 MG TAB.ER.24 PO SCH (09:00)
== END 2021-03-30 12:55 | disposition home or self-care (01) | DRG 750 ==
LOC: 3E 16:45
PROVIDERS: ADMIT Psychiatry & Neurology Psychosomatic Medicine; ATTEND Psychiatry & Neurology Psychosomatic Medicine
DX: F25.0 Schizoaffective disorder, bipolar type (principal); J96.01 Acute respiratory failure with hypoxia; F41.1 Generalized anxiety disorder; F42.9 Obsessive-compulsive disorder, unspecified; F90.9 Attention-deficit hyperactivity disorder, unspecified type; F17.210 Nicotine dependence, cigarettes, uncomplicated; G47.00 Insomnia, unspecified; Z83.3 Family history of diabetes mellitus; Z56.0 Unemployment, unspecified; Z82.5 Family history of asthma and other chronic lower respiratory diseases; R00.0 Tachycardia, unspecified
CPT/HCPCS: 36415; 71045; 80061; 81003; 82140; 84439; 84443; 84484; 93005; J3486; J1200; J1630; J2060; J2426

== ENCOUNTER 2021-04-03 17:50 | Emergency (ER) | payer MEDICAID ==
[~2021-04-03] VITALS: Ht 172.7 cm; Wt 75.0 kg
[~2021-04-03 17:50] MED LIST changes: +MULT-484 PO; +OXYC5TAB98 PO; +PALI3TAB11 PO
--- NOTE | 2021-04-03 17:58 | NUR ---
BIB EMS FROM [facility]. PT +ETOH AND PER EMS RPT PT STATED TO THEM THAT HE HAD USED METH. PT IS UNCOOPERATIVE AND BECOMES COMBATIVE AND YELLS "LEAVE ME ALONE I JUST WANT TO SLEEP" WHEN STIMULATED. PT +EMESIS IN EMS RIG, CLOTHES REMOVED AND GOWN PLACED. PT REFUSES ORAL TEMP AT THIS TIME BUT DOES NOT FEEL WARM NOR COLD TO THE TOUCH. VS ARE OTHERWISE STABLE. WARM BLANKET AND PILLOW PROVIDED. WILL CONTINUE TO MONITOR.
[2021-04-03 18:46] LABS: BASOPHILS % (AUTO) 1 % (0-1); EOSINOPHILS % (AUTO) 0 % (1-7); LYMPHOCYTES % (AUTO) 15 % (22-44); MEAN CORPUSCULAR HEMOGLOBIN 31.6 pg (27.5-34.5); MEAN PLATELET VOLUME 7.9 fL (7.4-10.4); MONOCYTES % (AUTO) 5 % (2-9); NEUTROPHILS % (AUTO) 79 % (42-75); PLATELET COUNT 232 x10^3/uL (130-400); RED BLOOD COUNT 5.21 x10^6/uL (4.38-5.82); RED CELL DISTRIBUTION WIDTH 13.5 % (9.4-14.8)
[2021-04-03 18:47] LABS: MD NO
[2021-04-03 18:59] LABS: ALANINE AMINOTRANSFERASE 39 U/L (12-78); ANION GAP 10 mmol/L (5-15); CHLORIDE 106 mmol/L (98-107); CREATININE 0.73 mg/dL (0.7-1.3); SALICYLATE LEVEL 3.5 mg/dL (2.8-20.0)
[2021-04-03 19:01] LABS: ALKALINE PHOSPHATASE 78 U/L (45-117); BILIRUBIN,TOTAL 0.4 mg/dL (0.2-1.0); TOTAL PROTEIN 7.6 g/dL (6.4-8.2)
--- NOTE | 2021-04-03 19:12 | NUR ---
LAURAAR RPT TO [place] [facility].
--- NOTE | 2021-04-03 19:59 | NUR ---
PT RESTING COMFORTABLY ON GURNEY, DENIES NEEDS AT THIS TIME.
--- NOTE | 2021-04-03 21:18 | NUR ---
PT RESTING COMFORTABLY ON GURNEY, DENIES ANY NEEDS AT THIS TIME
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
[2021-04-03 22:26] VITALS: BP 103/48
--- NOTE | 2021-04-03 22:42 | NUR ---
PT LIVES WITH MOTHER, MOTHER CALLED SHE WILL BE WAITING AT HOME FOR PATIENT.
== END 2021-04-03 22:28 | disposition home or self-care (01) ==
LOC: ED 22:00 → MERGE 22:00 → ED 22:28
DX: F10.220 Alcohol dependence with intoxication, uncomplicated (principal); R51.9 Headache, unspecified; Y90.0 Blood alcohol level of less than 20 mg/100 ml
CPT/HCPCS: 36415; 70450; 80053; 80299; 80320; 80329; 85025; 99285; G0480

== ENCOUNTER 2021-05-07 23:32 | Emergency (ER) | payer MEDICAID ==
[~2021-05-07] VITALS: Ht 180.3 cm; Wt 79.0 kg
[2021-05-07 23:49] VITALS: BP 117/72
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
[2021-05-08] MEDS ORDERED: ASPIRIN 325 MG TABLET PO ONE (00:13)
[2021-05-08] MEDS ORDERED: ASPIRIN 325 MG TABLET ONE (00:18)
--- NOTE | 2021-05-08 00:23 | NUR ---
Patient is resting in bed. Bed in lowest, rails engaged, call light on lap. Vital Signs within normal limits. WCTM. Pt continuing asking for pain medication. Pt was upset we gave him asa and not a norco.
--- NOTE | 2021-05-08 00:30 | NUR ---
pt off unit in imaging
[2021-05-08 00:34] LABS: ALANINE AMINOTRANSFERASE 30 U/L (12-78); ALBUMIN 4.1 g/dL (3.4-5.0); ANION GAP 6 mmol/L (5-15); CALCIUM 8.9 mg/dL (8.5-10.1); CHLORIDE 109 mmol/L (98-107)
[2021-05-08 00:38] LABS: ALKALINE PHOSPHATASE 78 U/L (45-117); BILIRUBIN,TOTAL 0.5 mg/dL (0.2-1.0); TOTAL PROTEIN 7.7 g/dL (6.4-8.2); TROPONIN I < 0.015 ng/mL (0.000-0.045)
[2021-05-08 00:40] LABS: MEAN CORPUSCULAR HEMOGLOBIN 31.5 pg (27.5-34.5); MEAN CORPUSCULAR HGB CONC 35.1 g/dL (33.2-36.2); MEAN PLATELET VOLUME 8.4 fL (7.4-10.4); PLATELET COUNT 218 x10^3/uL (130-400); RED BLOOD COUNT 5.28 x10^6/uL (4.38-5.82); RED CELL DISTRIBUTION WIDTH 13.3 % (9.4-14.8)
--- NOTE | 2021-05-08 00:54 | NUR ---
PT IS WALKING IN HALLWAY. STANDING WAITING FOR PHONE. PT STATING HE WANTS TO LEAVE.
[2021-05-08 01:02] LABS: <PLATELET ESTIMATE> ADEQUATE; <PLT MORPHOLOGY> NORMAL PLT MORPH; <RBC MORPHOLOGY> NORMAL; BAND#(MANUAL) 0.38 x10^3/uL; BANDS%(MANUAL) 4 % (0-7); EOS% (MANUAL) 1 % (1-7); LYMPH#(MANUAL) 2.21 x10^3/uL (1-3.4); LYMPHS% (MANUAL) 23 % (22-44); METAMYELOCYTES% (MANUAL) 1 % (0-1); MONOS#(MANUAL) 0.67 x10^3/uL (0.3-2.7); MONOS% (MANUAL) 7 % (2-9); SEG#(MANUAL) 6.14 x10^3/uL (1.8-6.8); SEGS% (MANUAL) 64 % (42-75)
--- NOTE | 2021-05-08 01:03 | NUR ---
PT REPORTS WANTING TO LEAVE. HAD PT SIGN AMA FORM. ASKD PT TO GO BACK TO ROOM TO TAKE OUT IV. PT WENT BACK INTO ROOM AND PULLED OUT HIS IV. TRIED TO PUT BANDAGE OVER AREA BUT PT DIDN'T WANT TO. EDUCATED PT ON BEEFITS OF STAYING AND RISKS OF LEAVING. ASKED PT TO WAIT FOR DOCTOR TO COME SEE HIM BUT HE DID NOT WANT TO WAIT. GAVE PT BUS PASS FOR SAFE RIDE HOME.
== END 2021-05-08 01:09 | disposition left against medical advice (07) ==
LOC: ED 05-08
DX: K08.89 Other specified disorders of teeth and supporting structures (principal); R07.9 Chest pain, unspecified; M54.9 Dorsalgia, unspecified; R51.9 Headache, unspecified; I10 Essential (primary) hypertension; F17.200 Nicotine dependence, unspecified, uncomplicated; W01.198A Fall on same level from slipping, tripping and stumbling with subsequent striking against other object, initial encounter; Y93.89 Activity, other specified; Y92.89 Other specified places as the place of occurrence of the external cause; Y99.8 Other external cause status
CPT/HCPCS: 36415; 70450; 71045; 80053; 84484; 85025; 99285

== ENCOUNTER 2021-05-13 04:38 | Emergency (ER) | payer MEDICAID ==
[~2021-05-13] VITALS: Ht 180.3 cm; Wt 73.0 kg
[2021-05-13 04:45] VITALS: BP 140/93
--- NOTE | 2021-05-13 04:53 | NUR ---
pt jumped out of bed, ambulated steady to restroom, explained pt pt to stay in [facility] to be evaled first
--- NOTE | 2021-05-13 05:12 | NUR ---
Pt found wandering the hallway asking personal questions of the EVS lady, found in wrong exam room. C collar removed by pt, pt non stop asking for pain medications.
--- NOTE | 2021-05-13 05:17 | NUR ---
pt took off c-collar, states feeling "amazing", states he wants to leave and check out.
== END 2021-05-13 05:45 | disposition home or self-care (01) ==
LOC: ED 05:35
DX: Z00.00 Encounter for general adult medical examination without abnormal findings (principal); I10 Essential (primary) hypertension; M54.2 Cervicalgia; M54.9 Dorsalgia, unspecified; R11.10 Vomiting, unspecified
CPT/HCPCS: 99283